=== PATIENT | female | born 1940 | race Caucasian/White ===

== ENCOUNTER 2016-11-15 16:06 | Emergency (ER) | payer OTHER, BC ==
[~2016-11-15] VITALS: Ht 162.6 cm; Wt 84.0 kg
[2016-11-15 16:10] VITALS: TEMP 36.8; Ht 162.6 cm; Wt 84.0 kg
[2016-11-15] MEDS ORDERED: GARL400T2 PO (16:28)
[2016-11-15] MEDS ORDERED: ACET-1175 PO (16:28)
[2016-11-15] MEDS ORDERED: MULT-55 PO (16:28)
[2016-11-15] MEDS ORDERED: ASCA500 PO (16:28)
[2016-11-15] MEDS ORDERED: IBUP-1050 PO (16:28)
[2016-11-15] MEDS ORDERED: MULTTAB PO (16:28)
[2016-11-15] MEDS ORDERED: ASPI325T39 PO (16:28)
[2016-11-15] MEDS ORDERED: VITA1TAB4 PO (16:28)
[2016-11-15] MEDS ORDERED: [UNRECOGNIZED DRUG - CODE] TOP (16:28)
[2016-11-15] MEDS ORDERED: CHOL2000 PO (16:28)
[2016-11-15] MEDS ORDERED: B-COTAB18 PO (16:28)
--- NOTE | 2016-11-15 16:57 | DIAGNOSTIC IMAGING REPORT ---
LEFT KNEE 3 VIEWS CLINICAL HISTORY: Left knee pain COMPARISON: None. 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 No acute fractures are visualized. There is quadriceps insertional calcification the superior patellar pole. IMPRESSION: Mild degenerative change. No acute fractures. Electronically signed by: Ibrahima Hare M.D. 11/15/2016 4:55 PM Dictated Date/Time: 11/15/2016 4:55 PM
[2016-11-15 18:06] VITALS: BP 115/72; PULSE 72; O2SAT 99
--- NOTE | 2016-11-16 01:51 | EMERGENCY ROOM VISIT NOTE ---
ED Visit Note First contact with patient: 17:36 I have personally evaluated and examined this patient. I agree with assessment and plan of Neptali Cosme PA-C. 76 yr old female with anterior left knee pain 2 weeks after sleeping awkwardly on lazy boy. Now with patellar TTP and pain with getting up. No posterior knee pain, swelling, nor calf/hamstring pain. No evidence of DVT. Imaging unremarkable. Advised PCP follow up or with Ortho.
--- NOTE | 2016-11-17 07:10 | EMERGENCY ROOM VISIT NOTE ---
ED Visit Note First contact with patient: 16:22 Chief Complaint: Left knee pain. History of Present Illness: Ms. Puentes is a 76-year-old white female who is brought into the ED via wheelchair accompanied by her complaining left anterior knee pain. Historically patient reports she has not had any significant injuries or surgeries to her knee in the past. Patient reports approximately 2 weeks ago she fell asleep on a glove see with her left leg draped over the side of the seat. She fell asleep and had her knee flexed for approximately 3 hours. When she woke up from sleep she was experiencing knee pain over the anterior portion of the knee. She reports this resolved after approximately 2 days and then return approximately one week ago. Patient is complaining of severe anterior left knee pain. She is not able to describe her discomfort. Her pain is located over the patella and the patellar tendon and the proximal portion of the tibia. She rates her discomfort 8/10. Her pain is nonradiating. Her pain worsens with ambulation. She has not identified any alleviating factors related to the pain. She reports she has been taken ibuprofen and multiple "creams" without relief of her discomfort. She denies any associated symptoms including fevers, chills, sweats, skin eruptions, skin color changes, back pain, hip pain, thigh pain, lower leg pain, ankle pain, foot pain, leg weakness/numbness/tingling. Review of Systems: As noted above in history of present illness. Past Medical History: Bronchitis, status post tubal ligation and appendectomy. Current Medications: Multivitamins, garlic, aspirin, Arnicare. Allergies to Medications: Patient denies. Social History: Patient is not employed; she lives with her and feels safe in her home environment; she denies tobacco and alcohol use. Physical Examination: Vital Signs: Date Time Temp Pulse Resp B/P (MAP) Pulse Ox O2 Delivery O2 Flow Rate FiO2 11/15/16 18:06 72 18 115/72 99 11/15/16 16:10 36.8 92 18 153/90 95 Room Air GENERAL: 76-year-old female in mild distress due to pain, nontoxic-appearing, afebrile and hemodynamically stable. NEUROLOGICAL: Awake, alert and oriented to person, place and time. Answering questions appropriately and following commands. SKIN: Warm, dry and pink. No soft tissue eruptions or trauma noted. LEFT LOWER EXTREMITY: No gross bony deformity. No shortening or malrotation. No tenderness in the hip, thigh, lower leg, ankle or foot. Mild tenderness over the anterior patella, patellar tendon and tibial tuberosity. I do not appreciate any bony deformity, swelling or erythema. There is no warmth to this area. Negative ballottement test. Negative patellar apprehension test. No laxity of the collateral or cruciate ligaments. No joint line or posterior knee tenderness. She had decreased range of motion to less than 90 but was able to reach full extension. Negative bounce test. I attempted to perform a Francisco's without success due to pain. Throughout the lower leg there was no tenderness, swelling. No dependent edema. No calf tenderness or cords. Throughout the foot the skin was warm and pink and capillary refill is brisk. She is able to distinguish light sensations through all dermatomes. ED Course: Patient is assessed as noted above. Patient's medication list was reviewed. Patient was offered pain medication and refused. Left Knee X-Rays: Were read by myself and the radiologist showing no acute fractures or dislocations. No joint effusion. Radiologist notes mild osteoarthritic changes and there is quadriceps insertional calcification of the superior patellar pole. Patient was issued a walker and instructed on achieves. Patient's case was reviewed with Dr. Carrion; he in the belly assessed the patient we agreed on diagnostic approach, treatment, disposition and plan. Patient was educated about today's findings and instructed on her treatment plan ; she verbalizes understanding and agreement with this plan. Clinical Impression: Anterior left knee pain. Disposition: Patient discharged home in stable condition accompanied by her ; prior to departure she was reassessed and subjectively reported she was feeling better and rated her discomfort 2/10. Plan: Comfort measures were discussed with the patient including rest, ice, alternating ibuprofen and acetaminophen and walker use; patient was offered opiate pain control and refused. Patient was encouraged to follow-up with family physician for recheck if no better in 4-5 days for possible referral to orthopedics. Patient was encouraged return the ED for worsening/uncontrolled pain, any new or /uncontrolled swelling, leg weakness/numbness/tingling or any new/concerning symptoms.
== END 2016-11-15 18:07 | disposition home or self-care (01) ==
LOC: C.EDB 16:07 → C.EDD 18:07
DX: M25.562 Pain in left knee (principal); Z79.82 Long term (current) use of aspirin; Z98.51 Tubal ligation status

== ENCOUNTER → 2017-03-16 | Day surgery (SDC) | payer OTHER, BC ==
[2017-02-27 10:40] VITALS: Ht 162.6 cm; Wt 81.8 kg
[~2017-03-16] VITALS: Ht 162.6 cm; Wt 81.8 kg
[~2017-03-16] MED LIST: ASCA500 PO; ATROPINE SULFATE 0.1 MG/ML 5ML SYR IV PRN; B-COTAB18 PO; CEFAZOLIN 2000MG IV PUSH 10 ML IV SCH; CHOL2000 PO; COEN100C7 PO; COLLAGEN PEPTIDES PO; DEXAMETHASONE SOD INJ 4 MG/ML VIAL ONE; EpHEDrine SULFATE INJ 50 MG/ML AMP IV PRN; EpINEphrine INJ 1MG/ML AMP 1 MG/ML AMP ONE; FENTANYL CITRATE INJ 50 MCG/1 ML 2 ML VIAL ONE; GARL400T2 PO; HYDR-5688 PO; HYDROCODONE/ACETAMOPHEN 5/325MG TAB PO PRN; HYDROmorphone INJ 1 MG/ML SYR IV PRN; IBUP-1050 PO; KETO10TA PO; KETOROLAC TROMETHAMINE 30 MG/ML VIAL ONE; LACTATED RINGER'S 1000ML 1,000 ML IV SCH; LIDOCAINE HCL 2% 2 ML VIAL (20MG/ML) ONE; MIDAZOLAM HCL 1 MG/ML 2ML VIAL ONE; MISCCAP80 PO; MULT-55 PO; MULTTAB PO; ONDANSETRON INJ 2 MG/ML 2 ML VIAL IV PRN; ONDANSETRON INJ 2 MG/ML 2 ML VIAL ONE; PROPOFOL IV EMULSION 10 MG/ML 20 ML VIAL IV ONE; ROPIVACAINE 0.5% 5 MG/ML 30 ML VIAL ONE; SODIUM CHLORIDE 0.9% 1000ML 1,000 ML IV SCH; THYR97.5 PO; VITA1TAB4 PO; [UNRECOGNIZED DRUG - CODE] PO; [UNRECOGNIZED DRUG - CODE] TOP
--- NOTE | 2017-03-16 06:30 | History & Physical Bridge - SC ---
H&P Re-Evaluation Bridge Note: I have examined the patient, reviewed the History & Physical and in the interval since the performance of the History & Physical I have noted the following changes of clinical significance: No changes noted
--- NOTE | 2017-03-16 07:42 | Discharge Instructions-SurgCtr ---
Discharge Instructions Date of Service Mar 16, 2017. Visit Reason for Visit: Tear Of Medial Meniscus Of Knee Discharge Discharge Diagnosis / Problem: SAME ABOVE Discharge Goals Goal(s): Decrease discomfort, Improve function Medications Stopped Medications Name(s): no blood thinners Restart Stopped Medication(s): MAY RESTART BLOOD THINNERS 03/16/2017 Activity Recommendations Activity Limitations: as noted below Lifting Limitations: gradually increase as tolerated Exercise/Sports Limitations: gradually increase as tolerated Shower/Bathe: tomorrow Anesthesia . Post Anesthesia Instructions: If you have had General Anesthesia or IV Sedation: * Do not drive today. * Resume driving when surgeon permits. * Do not make important decisions or sign legal documents today. * Call surgeon for: 1. Temperature elevations greater than 101 degrees F. 2. Uncontrollable pain. 3. Excessive bleeding. 4. Persistent nausea and vomiting. 5. Medication intolerance (nausea, vomiting or rash). * For nausea and vomiting use only clear liquids such as: tea, soda, bouillon until nausea subsides, then gradually increase diet as tolerated. * If you have any concerns or questions, call your surgeon's office. If physician is unavailable and it is an emergency, call 911 or go to the nearest emergency room. . Instructions / Follow-Up Instructions / Follow-Up MEDICATIONS: * Resume previous medications unless instructed otherwise by your surgeon. * Always take pain medication on a full stomach or with food to avoid upset stomach. * Do not drink alcohol or drive while taking narcotics. * Ibuprofen or Tylenol may be taken if narcotic not needed. SPECIAL CARE INSTRUCTIONS: __ None _X_ Keep extremity elevated and iced x 48 hours; apply ice 20-30 minutes 8-10 times/day. May remove at night. _X_ Crutches _X_ May discard when able __ Brace/Post-op shoe __ 24 hrs/day __ Remove at night _X_ Dressing __ Maintain until seen in office, may shower with plastic over site _X_ Remove dressings in 24-48 hours and then may shower _X_ Cover incisions with band-aids after showering __ Do not remove steri-strips Call physician if chills or temperature rises above 102 degrees or pain unrelieved by prescribed pain medications. Office [phone] Diet Recommendations Home Diet: no limitations Fluid Restriction: None Procedures Procedures Performed: Left Knee Arthroscopy, Partial Medial Meniscectomy, Chondroplasty Pending Studies Studies pending at discharge: no Medical Emergencies . Who to Call and When: Medical Emergencies: If at any time you feel your situation is an emergency, please call 911 immediately. . Non-Emergent Contact Non-Emergency issues call your: Primary Care Provider Call Non-Emergent contact if: you have a fever, temperature is above 101.5 . . "Provider Documentation" section prepared by Ty Monroy. .
--- NOTE | 2017-03-16 07:51 | OPERATIVE REPORT ---
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 PROCEDURE: Left knee diagnostic arthroscopy with chondroplasty, partial medial and lateral meniscectomy. SURGEON: Dr. Xiang Fuchs. CASE MANAGEMENT MANAGER: Kennedy Monroy PA-C, whose assistance was necessary for positioning of the leg and helping with instrumentation. ANESTHESIA: General. COMPLICATION: None. CONDITION: Stable to PACU. INDICATIONS: Palmira is a pleasant 76-year-old female who presented to my office with increased left knee pain. MRI and clinical examination were diagnostic for medial meniscal tear and mild chondromalacia. After failing conservative treatment, she elected to undergo a knee arthroscopy. OPERATION AND FINDINGS: On 03/16/2017, she arrived at [facility] for the above procedure. She was seen in the preoperative holding area and the operative extremity was identified and signed. She was given a preoperative antibiotic, taken back to the operating room, laid on table in supine position and put under general anesthesia. The left knee was then prepped and draped in sterile fashion. Timeout was done, the patient and operative extremity was properly identified. A scope was introduced in the lateral parapatellar portal. Diagnostic arthroscopy showed some mild synovitis in the suprapatellar pouch. There were some grade 4 chondral changes off the medial side of the trochlea. No chondral changes laterally. The scope was then brought into the medial compartment. There were some grade 2 and grade 3 chondral changes off the distal medial femoral condyle. There was complex tearing of the entire posterior aspect of the medial meniscus. A medial parapatellar portal was made under direct visualization. A shaver was used to complete a chondroplasty of the distal medial femoral condyle. A shaver was also used to debride back the unstable portions of medial meniscus and get the meniscus back to stable margins. A biter was used to take off the larger, unstable fragments. Multiple pictures were taken afterward which showed removal of the unstable meniscal fragments. Scope was then brought into the trochlea. ACL and PCL were probed and intact. The scope was then brought into the lateral compartment. There was a tear of the root of the lateral meniscus that was flipped under itself a little bit. A shaver was used to remove this unstable meniscal fragment. The remainder of the lateral meniscus looked okay. There was no cartilage damage laterally. The knee was then brought into full extension. A shaver was used to do mild chondroplasty of the trochlea and remove any inflamed fat pad. The scope was then placed in the medial parapatellar portal, repeat diagnostic arthroscopy showed no additional pathology. Multiple pictures were taken. The knee was then irrigated and arthroscopic instruments were removed. Portal sites were closed with 3-0 nylon. The knee was then injected with 30 mL of ropivacaine with epi and Toradol. She was then placed in a soft compressive dressing, extubated, transferred to a [facility] and taken to the postanesthesia care unit in stable condition. She tolerated the procedure well. I attest to the content of the Intraoperative Record and any orders documented therein. Any exception s are noted below.
[2017-03-16] MEDS: FENTANYL CITRATE INJ 50 MCG/1 ML 2 ML VIAL IV PRN ×2 (08:09→08:20)
--- NOTE | 2017-03-16 08:28 | [facility] Post Operative Brief Note ---
Immediate Operative Summary Operative Date Mar 16, 2017. Pre-Operative Diagnosis Left Knee Medial Meniscus Tear Post-Operative Diagnosis Same Procedure(s) Performed Left Knee Arthroscopy, Partial Medial Meniscectomy, Chondroplasty Surgeon Dr Fuchs Billing Analyst Surgeon(s) Kennedy Monroy PA-C Estimated Blood Loss 5ml Findings as above Specimens None Complication(s) None Disposition Recovery Room / PACU
[2017-03-16 08:42] VITALS: TEMP 36.7
[2017-03-16 09:38] VITALS: BP 148/80; PULSE 85; O2SAT 95
--- NOTE | 2017-03-16 09:43 | Anesthesia Progress Nt - [facility] ---
Anesthesia Post Op Note Date & Time Mar 16, 2017 at 09:43 Vital Signs Pain Intensity: 3 Vital Signs Past 12 Hours Date Time Temp Pulse Resp B/P (MAP) Pulse Ox O2 Delivery O2 Flow Rate FiO2 03/16/17 09:38 85 148/80 (102) 95 Room Air 03/16/17 08:42 36.7 84 16 162/83 (109) 96 Room Air 03/16/17 08:34 85 13 03/16/17 08:34 84 13 95 03/16/17 08:31 166/87 03/16/17 08:29 83 21 03/16/17 08:29 84 21 99 03/16/17 08:29 36.7 88 18 166/87 94 Room Air 03/16/17 08:26 158/87 03/16/17 08:25 160/87 03/16/17 08:24 85 12 100 03/16/17 08:24 83 12 03/16/17 08:21 190/103 03/16/17 08:19 84 16 03/16/17 08:19 83 16 100 03/16/17 08:16 159/87 03/16/17 08:14 78 12 100 03/16/17 08:14 78 12 03/16/17 08:11 178/88 03/16/17 08:09 75 13 03/16/17 08:09 76 13 100 03/16/17 08:06 179/96 03/16/17 08:04 79 10 100 03/16/17 08:04 78 10 03/16/17 08:01 167/87 03/16/17 07:59 80 9 100 03/16/17 07:59 79 9 03/16/17 07:56 175/90 03/16/17 07:54 80 20 97 03/16/17 07:54 80 20 03/16/17 07:51 172/90 03/16/17 07:49 81 8 03/16/17 07:49 81 8 100 03/16/17 07:46 166/91 03/16/17 07:44 86 15 100 03/16/17 07:44 86 15 03/16/17 07:41 170/95 03/16/17 07:40 178/98 03/16/17 07:39 36.5 86 12 178/98 97 Mask 6 03/16/17 06:26 36.7 84 20 164/90 (114) 95 Room Air Notes Mental Status: alert / awake / arousable, participated in evaluation Pt Amnestic to Procedure: Yes Nausea / Vomiting: adequately controlled Pain: adequately controlled Airway Patency, RR, SpO2: stable & adequate BP & HR: stable & adequate Hydration State: stable & adequate Anesthetic Complications: no major complications apparent
== END | disposition home or self-care (01) ==
LOC: X.SURG 06:05
PROVIDERS: ATTEND Orthopaedic Surgery
DX: S83.242A Other tear of medial meniscus, current injury, left knee, initial encounter (principal); S83.282A Other tear of lateral meniscus, current injury, left knee, initial encounter; M94.20 Chondromalacia, unspecified site; X58.XXXA Exposure to other specified factors, initial encounter

== ENCOUNTER → 2017-06-09 | Outpatient (CLI) | payer OTHER, BC ==
[~2017-06-09] MED LIST changes: -ATROPINE SULFATE 0.1 MG/ML 5ML SYR IV PRN; -CEFAZOLIN 2000MG IV PUSH 10 ML IV SCH; -DEXAMETHASONE SOD INJ 4 MG/ML VIAL ONE; -EpHEDrine SULFATE INJ 50 MG/ML AMP IV PRN; -EpINEphrine INJ 1MG/ML AMP 1 MG/ML AMP ONE; -FENTANYL CITRATE INJ 50 MCG/1 ML 2 ML VIAL ONE; -HYDROCODONE/ACETAMOPHEN 5/325MG TAB PO PRN; -HYDROmorphone INJ 1 MG/ML SYR IV PRN; -KETOROLAC TROMETHAMINE 30 MG/ML VIAL ONE; -LACTATED RINGER'S 1000ML 1,000 ML IV SCH; -LIDOCAINE HCL 2% 2 ML VIAL (20MG/ML) ONE; -MIDAZOLAM HCL 1 MG/ML 2ML VIAL ONE; -ONDANSETRON INJ 2 MG/ML 2 ML VIAL IV PRN; -ONDANSETRON INJ 2 MG/ML 2 ML VIAL ONE; -PROPOFOL IV EMULSION 10 MG/ML 20 ML VIAL IV ONE; -ROPIVACAINE 0.5% 5 MG/ML 30 ML VIAL ONE; -SODIUM CHLORIDE 0.9% 1000ML 1,000 ML IV SCH
--- NOTE | 2017-06-09 15:45 | DIAGNOSTIC IMAGING REPORT ---
FLUOROSCOPIC GUIDED right HIP STEROID INJECTION FLUOROSCOPY TIME: 3 seconds. A single fluoroscopic spot image HISTORY: Right hip pain. PROCEDURE: After obtaining written informed consent, the patient was placed supine on the fluoroscopy table. A suitable site for needle insertion was marked using fluoroscopic guidance. The right hip was prepped and draped in the usual sterile fashion. 1% lidocaine was used for skin, subcutaneous and deep soft tissue anesthesia. Under intermittent fluoroscopic guidance, a 22 gauge x 3.5 inch spinal needle was inserted into the right hip joint. 2 cc of Optiray 300 was injected to confirm the intra-articular location. This is followed by a mixture of 5cc of 0.5% bupivacaine and 2 cc of betamethasone at the request of the referring physician. The needle was then removed. There were no apparent complications. IMPRESSION: Fluoroscopic-guided right hip steroid injection without immediate complication. Electronically signed by: Vik Solano M.D. 06/09/2017 3:44 PM Dictated Date/Time: 06/09/2017 3:43 PM
== END | disposition home or self-care (01) ==
LOC: C.RADBC 13:00
PROVIDERS: ATTEND Orthopaedic Surgery
DX: M16.11 Unilateral primary osteoarthritis, right hip (principal)

== ENCOUNTER → 2017-12-13 | Outpatient (CLI) | payer OTHER, BC ==
[~2017-12-13] MED LIST changes: +CHOL1000 PO; +COEN150C PO; +GARL1TAB13 PO; -HYDR-5688 PO; -KETO10TA PO; +VTME100 PO; +[UNRECOGNIZED DRUG - OTHER] PO
--- NOTE | 2017-12-13 16:05 | DIAGNOSTIC IMAGING REPORT ---
TWO VIEW CHEST CLINICAL HISTORY: Preoperative examination. FINDINGS: PA and lateral chest radiographs are obtained. No prior studies are available for comparison at the time of dictation. The cardiomediastinal silhouette is unremarkable. The lungs and pleural spaces are clear. There is no pneumothorax. The skeletal structures are osteopenic. Degenerative changes noted in the shoulders. A mild compression deformity is seen in the mid to lower thoracic region. IMPRESSION: No active disease in the chest. Electronically signed by: Ren Ewing M.D. 12/13/2017 4:04 PM Dictated Date/Time: 12/13/2017 4:03 PM
[2017-12-13 16:45] LABS: BASO % 0.4 %; BASO ABS # 0.02 K/uL (0-0.2); EOS % 1.2 %; EOS ABS # 0.06 K/uL (0-0.5); HEMATOCRIT 41.8 % (37-47); HEMOGLOBIN 14.2 g/dL (12.0-16.0); IG# 0.01 K/uL (0.00-0.02); LYMPH % 32.8 %; LYMPH ABS # 1.64 K/uL (1.2-3.4); MEAN CELL VOLUME 92.1 fL (80-100); MEAN CORPUSCULAR HEMOGLOBIN 31.3 pg (25-34); MEAN PLATELET VOLUME 10.2 fL (7.4-10.4); MONO ABS # 0.45 K/uL (0.11-0.59); NEUT % 56.4 %; NEUT ABS # 2.82 K/uL (1.4-6.5); PLATELET COUNT 252 K/uL (130-400); RED CELL DISTRIBUTION WIDTH SD 43.6 fL (36.4-46.3)
[2017-12-13 16:52] LABS: PTT PATIENT 23.6 SECONDS (21.0-31.0)
[2017-12-13 17:04] LABS: BLOOD UREA NITROGEN 19 mg/dl (7-18); CALCIUM 9.3 mg/dl (8.5-10.1); CARBON DIOXIDE 29 mmol/L (21-32); CREATININE 0.72 mg/dl (0.60-1.20); GLUCOSE 115 mg/dl (70-99); POTASSIUM 4.9 mmol/L (3.5-5.1); SODIUM 138 mmol/L (136-145)
== END | disposition home or self-care (01) ==
LOC: C.CPL 14:57
PROVIDERS: ATTEND Orthopaedic Surgery
DX: Z01.810 Encounter for preprocedural cardiovascular examination (principal); Z01.811 Encounter for preprocedural respiratory examination; Z01.812 Encounter for preprocedural laboratory examination

== ENCOUNTER 2020-08-04 10:05 | Inpatient (IN) ==
--- NOTE | 2020-07-14 15:55 | PAT Medication Instructions ---
Medication Instructions Date of Service July 14, 2020 Home Medications A-C-E-zinc ox-selen AA-copper [Vision Formula] 1 tab PO DAILY ascorbic acid (vitamin C) [Vitamin C] 500 mg PO BID ibuprofen 200 - 600 mg PO Q4H PRN multivitamin 1 tab PO DAILY vitamin B complex 1 tab PO QAM thyroid (pork) [Nature-Throid] 97.5 mg PO QAM cholecalciferol (vitamin D3) [Vitamin D3] 1,000 unit PO QAM coenzyme Q10 [CoQ-10] 100 mg PO QAM vitamin E 100 unit PO BID Lactobacillus acidophilus [Probiotic] 1 cap PO TIDM acetaminophen [Tylenol Extra Strength] 1,000 mg PO DIRECTED PRN arnica 1 applic TOPICAL DIRECTED PRN collagen (bovine) 1 applic TOPICAL DAILY dextromethorphan-guaifenesin [Mucinex DM] 2 tab PO Q12H PRN garlic 500 mg PO DAILY ASK your surgeon for instructions ibuprofen 200 - 600 mg PO Q4H PRN STOP taking 2 weeks before surgery A-C-E-zinc ox-selen AA-copper [Vision Formula] 1 tab PO DAILY coenzyme Q10 [CoQ-10] 100 mg PO QAM vitamin E 100 unit PO BID garlic 500 mg PO DAILY STOP taking 24 hours before surgery arnica 1 applic TOPICAL DIRECTED PRN collagen (bovine) 1 applic TOPICAL DAILY DO NOT take the morning of surgery ascorbic acid (vitamin C) [Vitamin C] 500 mg PO BID multivitamin 1 tab PO DAILY vitamin B complex 1 tab PO QAM cholecalciferol (vitamin D3) [Vitamin D3] 1,000 unit PO QAM Lactobacillus acidophilus [Probiotic] 1 cap PO TIDM dextromethorphan-guaifenesin [Mucinex DM] 2 tab PO Q12H PRN Take morning of surgery With a small sip of water, OTHERWISE NOTHING TO EAT OR DRINK AFTER MIDNIGHT: thyroid (pork) [Nature-Throid] 97.5 mg PO QAM acetaminophen [Tylenol Extra Strength] 1,000 mg PO DIRECTED PRN (okay to take up to 4 hours prior to surgery if needed) Take evening before surgery Lactobacillus acidophilus [Probiotic] 1 cap PO TIDM acetaminophen [Tylenol Extra Strength] 1,000 mg PO DIRECTED PRN (if needed) dextromethorphan-guaifenesin [Mucinex DM] 2 tab PO Q12H PRN (if needed) Other Notes If you have any questions please call us at [phone] or [phone] or [phone] or [phone]
--- NOTE | 2020-07-16 13:00 | Anesthesiology Consultation ---
Date of Service July 16, 2020 Assessment & Plan (1) Encounter for pre-operative examination: Chart Review Chart Review: Pending: Refer to Additional Notes / Consult section (pending response from PCP re: CXR and preop Covid testing ) and Patient seen in Pre Admission Testing Note sent to PCP re: CXR and inquiring if CT scan of chest needs done prior to surgery. Also sent TSH and Hgb A1C as FYI to follow up as outpatient. - Check BSG AM DOS Per PAT appt on 07/16/20, pt resides in [facility]. No recent travel. Uses PPE. No known Covid positive contacts or Covid related symptoms. No known Covid infection in the past 90 days. Preop Covid testing 07/29/20= will await results. Educated on importance of self quarantining, social distancing and wearing mask in public both for the patient and household contacts. Teaching & Discussion Pre-Anesthesia Teaching/Discussion Notes: Instructed NPO after midnight before surgery,except medications with 15 cc of water. Medication instructions provided according to the [facility] guidelines. History Surgery Operation Date: 08/04/20 10:55 Proposed Procedures p Left Reverse Total Shoulder Arthroplasty Titanium - Xiang Fuchs, DO Height/Weight Height: 5 ft 2.5 in Weight: 82.8 kg Allergies Allergy/AdvReac Type Severity Reaction Status Date / Time nickel AdvReac Unknown SKIN Verified 07/09/20 15:13 IRRITATION Medications Home Medications Medication Instructions Recorded Confirmed Last Taken A-C-E-zinc ox-selen AA-copper 1 tab PO DAILY #0 11/15/16 07/09/20 08/16/18 [Vision Formula] ascorbic acid (vitamin C) [Vitamin 500 mg PO BID #0 11/15/16 07/09/20 08/16/18 C] ibuprofen 200 - 600 mg PO Q4H PRN #0 tab 11/15/16 07/09/20 Unknown multivitamin 1 tab PO DAILY #0 tab 11/15/16 07/09/20 08/16/18 vitamin B complex 1 tab PO QAM #0 11/15/16 07/09/20 08/16/18 cholecalciferol (vitamin D3) 1,000 unit PO QAM 90 Days #90 tab 12/13/17 07/09/20 08/16/18 [Vitamin D3] coenzyme Q10 [CoQ-10] 100 mg PO QAM #0 cap 12/13/17 07/09/20 08/16/18 vitamin E 100 unit PO BID #0 12/13/17 07/09/20 08/16/18 Lactobacillus acidophilus 1 cap PO TIDM 08/16/18 07/09/20 08/16/18 [Probiotic] acetaminophen [Tylenol Extra 1,000 mg PO DIRECTED PRN 08/16/18 07/09/20 Unknown Strength] arnica 1 applic TOPICAL DIRECTED PRN 08/16/18 07/09/20 Unknown collagen (bovine) 1 applic TOPICAL DAILY 08/16/18 07/09/20 08/16/18 dextromethorphan-guaifenesin 2 tab PO Q12H PRN 08/16/18 07/09/20 Unknown [Mucinex DM] garlic 500 mg PO DAILY 07/08/19 07/09/20 Unknown Actalin See Rx Instructions .ROUTE .COMPLEX 07/16/20 07/16/20 Unknown celecoxib [Celebrex] 200 mg PO DAILY 07/16/20 07/16/20 Unknown Past Medical History Medical History (Updated 07/17/20 @ 13:48 by Flor Waters PA-C) Arthritis Questionable PMR but no definitive diagnosis Dyslipidemia History of seizure DURING CHILDHOOD AND STOP TAKING MEDS AGE 41. NO SEIZURE ACTIVITY SINCE Hypothyroidism Was on Nature thyroid in the past - no longer taking- taking OTC thyroid supplement (Actalin). TSH at PAT appt on 07/16/20 minimally elevated at 4.910 and Free T4 WNL Numbness and tingling of both lower extremities SECONDARY TO KNEE SURGERY; ALSO POSSIBLE SECONDARY TO PREDIABETES Prediabetes Per patient- glucose controlled Hgb A1C 7.3 (no meds)- results sent to PCP for follow up as outpatient Exercise / Class Metabolic Activity II 4-5 Yardwork/Stairs/Walk up hill (one flight of stairs - no chest pain or SOB ) Past Surgical History Surgical History History of appendectomy History of bilateral tubal ligation History of cholecystectomy History of left cataract surgery History of partial knee replacement LEFT History of right cataract surgery Hx of arthroscopic knee surgery LEFT 03/2017 Past Anesthesia History No Hx of Anesthesia Complications and No Family Hx of Anesthesia Complications History of PONV No Hx of PONV and No Hx of Motion Sickness Social History Smoking Status: Former smoker tobacco type: cigarettes Smoking cigarettes per day: Smoked x 20 years- light smoker Do You Dip or Chew Tobacco: No Smoking End Date: Quit at age 41 Hx Alcohol Use: No Hx Substance Use: No substance use type: does not use Review of Systems Light snoring - no hx of sleep study Patient denies chest pain, shortness of breath, dyspnea on exertion, reflux, cough, wheezing, palpitations. No hx of stroke, AL. No hx of blood clots or blood transfusions Physical Exam Vital Signs VITALS BP 122/7 P 88 TEMP 98.3 SP02 96% RESP 16 Constitutional no acute distress ENMT Mouth: no TMJ clicking Thyromental Distance: > or= 3.5 Finger Breadths (3.5) Mallampati Class: II Temporary bridge (will not wear DOS) Capped top front teeth (multiple) Neck neck extension not limited Respiratory normal respiratory effort; no respiratory distress Auscultation: lungs clear to auscultation bilaterally; no wheezes Cardiovascular Rate/Rhythm: regular rate and regular rhythm Heart Sounds: no murmur Vessels: no carotid bruit Musculoskeletal Spine: no pain with cervical ROM Extremities: extremities normal to inspection Psychiatric Orientation: alert Testing Laboratory Results 07/16/20 13:55 07/16/20 13:55 PT 9.8 Seconds (9.0-12.0) 07/16/20 13:55 INR 1.0 (0.9-1.1) 07/16/20 13:55 APTT 27.7 Seconds (21.0-31.0) 07/16/20 13:55 Hemoglobin A1c 7.3 % (4.5-5.6) H 07/16/20 13:55 Blood Type O Positive 07/16/20 13:55 Antibody Screen NEGATIVE 07/16/20 13:55 07/16/20= TSH: 4.910 Free T4: 1.09 Electrocardiogram Date: 07/16/20 Findings: + NSR @ (81bpm) Normal EKG. Chest X-Ray Date: 07/16/20 Findings: + NAD Ill-defined 9 mm nodular density of the left lung apex may be secondary to summation density versus pulmonary nodule. As a precautionary measure a follow- up chest CT could be considered. (CXR and note sent to PCP for review)
--- NOTE | 2020-07-16 14:29 | XRay Report ---
XR chest Pre-admission PA/Lat HISTORY: 80 years-old Female pat preoperative exam. No acute chest complaints COMPARISON: Chest radiograph 07/15/2019 TECHNIQUE: PA and lateral views of the chest FINDINGS: Cardiomediastinal and hilar silhouettes are within normal limits. Unchanged smoothly marginated right paratracheal opacity suggestive of normal vasculature. Ill-defined 9 mm nodular density of the left upper lung. No pneumothorax, pleural effusion, airspace consolidation or overt pulmonary edema. Degen erative changes of the spine and left shoulder. IMPRESSION: 1. No acute process. 2. Ill-defined 9 mm nodular density of the left lung apex may be secondary to summation density versu s pulmonary nodule. As a precautionary measure a follow-up chest CT could be considered. ACT 112: Negative or not required by law. The above report was generated using voice recognition software. It may contain grammatical, syntax o r spelling errors. Electronically signed by: Carmelo Olivera M.D. 07/16/2020 2:28 PM
[2020-07-16 15:16] LABS: Basophils # (auto) 0.03 K/uL (0-0.2); Basophils % (auto) 0.5 %; Eosinophils # (auto) 0.18 K/uL (0-0.5); Eosinophils % (auto) 3.1 %; Hematocrit (blood only) 35.1 % (37-47); Hemoglobin 11.5 g/dL (12.0-16.0); Immature Granulocytes # (auto) 0.01 K/uL (0.00-0.02); Immature Granulocytes % (auto) 0.2 %; Lymphocytes # (auto) 1.06 K/uL (1.2-3.4); Lymphocytes % (auto) 18.1 %; Mean Corpuscular Hemoglobin 29.3 pg (25-34); Mean Corpuscular Hgb Conc 32.8 g/dL (32-36); Mean Corpuscular Volume 89.5 fL (80-100); Mean Platelet Volume 9.3 fL (7.4-10.4); Monocytes # (auto) 0.55 K/uL (0.11-0.59); Monocytes % (auto) 9.4 %; Neutrophils # (auto) 4.02 K/uL (1.4-6.5); Neutrophils % (auto) 68.7 %; Platelet Count 390 K/uL (130-400); RDW Coefficient of Variation 14.8 % (11.5-14.5); RDW Standard Deviation 48.9 fL (36.4-46.3); Red Blood Count 3.92 M/uL (4.2-5.4); White Blood Count 5.85 K/uL (4.8-10.8)
[2020-07-16 15:28] LABS: Partial Thromboplastin Ratio 1.1; Partial Thromboplastin Time 27.7 Seconds (21.0-31.0); Prothrombin Time 9.8 Seconds (9.0-12.0)
[2020-07-16 16:04] LABS: BUN Creatinine Ratio 26.8 (10-20); Calcium 9.4 mg/dl (8.5-10.1); Creatinine Clr Calc Pharmacy 67.6 ml/min; Est GFR (African American) 96.4; Est GFR (Non-African American) 83.2; Potassium 4.8 mmol/L (3.5-5.1)
[2020-07-16 16:14] LABS: Thyroid Stimulating Hormone 4.91 uIu/ml (0.300-4.500)
[2020-07-16 16:26] LABS: T4 Free Thyroxine 1.09 ng/dl (0.8-1.6)
[2020-07-17 06:54] LABS: Estimated Average Glucose 163 mg/dl; Hemoglobin A1C 7.3 % (4.5-5.6)
--- NOTE | 2020-07-17 12:56 | Electrocardiogram Report ---
Test Reason : Blood Pressure : / mmHG Vent. Rate : 081 BPM Atrial Rate : 081 BPM P-R Int : 156 ms QRS Dur : 078 ms QT Int : 382 ms P-R-T Axes : 062 -13 046 degrees QTc Int : 443 ms Normal sinus rhythm Normal ECG When compared with ECG of 15-JUL-2019 13:37, Premature ventricular complexes are no longer Present Confirmed by Ori Pool ([id number]) on 07/17/2020 12:55:48 PM Referred By: Xiang Fuchs Confirmed By:Ori Pool
--- NOTE | 2020-07-30 13:22 | History & Physical Report ---
Date of Service July 30, 2020 Assessment & Plan (1) Osteoarthritis of left shoulder: We will proceed with a left reverse shoulder arthroplasty. Postoperatively she will be placed in a sling and kept overnight in the hospital for postoperative medical management. She plans to use energy physical therapy upon discharge. History of Present Illness Chief Complaint: Advanced osteoarthritis of the left shoulder. Primary Care Provider: Stephanie Bruner DO Palmira is a pleasant 80-year-old female whose been dealing with chronic increasing left shoulder pain. She denies any injuries. X-rays and clinical examination have been diagnostic for advanced osteoarthritis of left shoulder. Given her poor function as well as her glenoid bone loss, we have elected to proceed with a left reverse shoulder arthroplasty.. Allergies Allergy/AdvReac Type Severity Reaction Status Date / Time nickel AdvReac Unknown SKIN Verified 07/09/20 15:13 IRRITATION Home Medications Medication Instructions Recorded Confirmed Type A-C-E-zinc ox-selen AA-copper 1 tab PO DAILY #0 11/15/16 07/09/20 History [Vision Formula] ascorbic acid (vitamin C) [Vitamin 500 mg PO BID #0 11/15/16 07/09/20 History C] ibuprofen 200 - 600 mg PO Q4H PRN #0 tab 11/15/16 07/09/20 History multivitamin 1 tab PO DAILY #0 tab 11/15/16 07/09/20 History vitamin B complex 1 tab PO QAM #0 11/15/16 07/09/20 History cholecalciferol (vitamin D3) 1,000 unit PO QAM 90 Days #90 tab 12/13/17 07/09/20 History [Vitamin D3] coenzyme Q10 [CoQ-10] 100 mg PO QAM #0 cap 12/13/17 07/09/20 History vitamin E 100 unit PO BID #0 12/13/17 07/09/20 History Lactobacillus acidophilus 1 cap PO TIDM 08/16/18 07/09/20 History [Probiotic] acetaminophen [Tylenol Extra 1,000 mg PO DIRECTED PRN 08/16/18 07/09/20 History Strength] arnica 1 applic TOPICAL DIRECTED PRN 08/16/18 07/09/20 History collagen (bovine) 1 applic TOPICAL DAILY 08/16/18 07/09/20 History dextromethorphan-guaifenesin 2 tab PO Q12H PRN 08/16/18 07/09/20 History [Mucinex DM] garlic 500 mg PO DAILY 07/08/19 07/09/20 History Actalin See Rx Instructions .ROUTE .COMPLEX 07/16/20 07/16/20 History celecoxib [Celebrex] 200 mg PO DAILY 07/16/20 07/16/20 History Past Med/Surg History Medical History Arthritis Questionable PMR but no definitive diagnosis Dyslipidemia History of seizure DURING CHILDHOOD AND STOP TAKING MEDS AGE 41. NO SEIZURE ACTIVITY SINCE Hypothyroidism Was on Nature thyroid in the past - no longer taking- taking OTC thyroid supplement (Actalin). TSH at PAT appt on 07/16/20 minimally elevated at 4.910 and Free T4 WNL Numbness and tingling of both lower extremities SECONDARY TO KNEE SURGERY; ALSO POSSIBLE SECONDARY TO PREDIABETES Prediabetes Per patient- glucose controlled Hgb A1C 7.3 (no meds)- results sent to PCP for follow up as outpatient Surgical History History of appendectomy History of bilateral tubal ligation History of cholecystectomy History of left cataract surgery History of partial knee replacement LEFT History of right cataract surgery Hx of arthroscopic knee surgery LEFT 03/2017 Social History Smoking Status: Former smoker Cigarettes Per Day: Smoked x 20 years- light smoker; Second Hand Exposure: No; Hx Alcohol Use: No Hx Substance Use: No Preferred Language: Macanese Communication Ability: Effective Contact Lens Assistant Required: No Beliefs That Will Affect Care: None Current Living Situation: Spouse Feels Safe at Home: Yes Assistive Devices: Glasses Review of Systems All systems reviewed & are unremarkable except as noted in HPI & below. Physical Exam On physical examination of her left shoulder, she has about 130 reason for elevation with her degrees of external rotation. She has 4 out of 5 motion of the full can testing 4 out of 5 motion with external rotation. She has pain of the glenohumeral joint line.. Constitutional WD/WN, vitals as above Eyes PERRL, conjunctivae normal, anicteric sclerae ENMT external ear and nose normal, oropharynx normal Neck trachea midline, no thyromegaly Respiratory normal respiratory effort Cardiovascular RRR, no murmur, no edema Gastrointestinal (Abdomen) normal bowel sounds, soft, nontender, no hepatosplenomegaly Psychiatric A+Ox3, euthymic affect Results & Data Results & Data Laboratory Results . Diagnostic Findings X-rays of the left shoulder show advanced osteoarthritis with joint space narrowing, osteophyte formation, and [id number] articulation.. PG Care Time/CCT Total # of Minutes Spent Total Time Spent with Patient: Total time spent is greater than 50% in coordination of care (as documented) at patient's floor/unit and/or counseling patient: Coding Level of Care Code None Diagnoses Osteoarthritis of left shoulder M19.012
[~2020-08-04 10:05] MED LIST changes: +ACETAMINOPHEN 500 MG TAB PO SCH; -ASCA500 PO; -B-COTAB18 PO; +BUPIVACAINE 0.5 % 5 MG/1 ML PF 10ML VIAL ONE; -CHOL1000 PO; -CHOL2000 PO; -COEN100C7 PO; -COEN150C PO; -COLLAGEN PEPTIDES PO; +FAMOTIDINE 20 MG TAB PO SCH; +GABAPENTIN 300 MG CAP PO SCH; -GARL1TAB13 PO; -GARL400T2 PO; -IBUP-1050 PO; +LR 15ML/HR IV SCH; +LR 60ML/HR IV SCH; -MISCCAP80 PO; -MULT-55 PO; -MULTTAB PO; +ROPIVACAINE 0.5% HCL/PF 150 MG, BUPIVACAINE 0.75% MPF 20 ML, EPINEPHrine 30MG/30ML (OR ... INSTIL SCH; -THYR97.5 PO; +TRANEXAMIC ACID 1,000 MG **IV Intra-op IV SCH; -VITA1TAB4 PO; -VTME100 PO; -[UNRECOGNIZED DRUG - CODE] PO; -[UNRECOGNIZED DRUG - CODE] TOP; -[UNRECOGNIZED DRUG - OTHER] PO; +ceFAZolin 2000MG 2,000 MG/15 ML SYR IV SCH; +dexAMETHasone 4 MG TAB PO SCH; +traMADol HCL 50 MG TABLET PO SCH
[2020-08-04] MEDS ORDERED: fentaNYL citrate 100 MCG/2 ML VIAL ONE (10:17)
[2020-08-04] MEDS ORDERED: MIDAZOLAM HCL 1 MG/ML 2ML VIAL ONE (10:17)
[2020-08-04] MEDS ORDERED: LIDOCAINE HCL 2% 2 ML VIAL/AMP(20MG/ML) INFIL ONE (10:17)
[2020-08-04] MEDS ORDERED: PROPOFOL IV EMULSION 10 MG/ML 20 ML VIAL IV ONE (10:17)
[2020-08-04] MEDS ORDERED: ONDANSETRON INJ 2 MG/ML 2 ML VIAL ONE (10:17)
--- NOTE | 2020-08-04 11:26 | History & Physical Bridge Note ---
Date of Service August 04, 2020 History & Physical Bridge Note I have examined the patient, reviewed the History & Physical and in the interval since the performance of the History & Physical I have noted the following changes of clinical significance: no changes noted
[2020-08-04] MEDS ORDERED: ATROPINE SULFATE 0.1 MG/ML 10ML SYR IV PRN (12:45)
[2020-08-04] MEDS ORDERED: HYDROmorphone INJ 1 MG/ML SYRINGE IV PRN (12:45)
[2020-08-04] MEDS ORDERED: PHENYLEPHRINE 100MCG/ML 5ML SYR IV PRN (12:45)
[2020-08-04] MEDS ORDERED: ePHEDrine sulfate 50 MG/ML AMP IV PRN (12:45)
[2020-08-04] MEDS ORDERED: ONDANSETRON INJ 2 MG/ML 2 ML VIAL IV PRN ×2 (12:45→16:29)
[2020-08-04] MEDS ORDERED: LABETALOL HCL IV 5 MG/ML 20ML IV PRN (12:45)
[2020-08-04] MEDS ORDERED: fentaNYL citrate 100 MCG/2 ML VIAL IV PRN (12:45)
[2020-08-04] MEDS ORDERED: ROPIVACAINE 0.5% HCL/PF 150 MG, BUPIVACAINE 0.75% MPF 20 ML, EPINEPHrine 30MG/30ML (OR ... INSTIL SCH (14:00)
[2020-08-04] MEDS ORDERED: PHENYLEPHRINE HCL 10 MG/ML VIAL ONE (14:12)
--- NOTE | 2020-08-04 14:40 | Operative Report ---
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 tendon I identified the patient and participated in the time-out.: Yes Procedure Operation Date: 08/04/20 13:05 Actual Procedures p Left Reverse Total Shoulder Arthroplasty Titanium(Left) with open biceps tenodesis as a distinct and separate procedure entheses modifier 59)- Xiang Fuchs DO Surgeon Xiang Fuchs DO Temporary Data Entry Clerk Xiang Hanson PAC Estimated Blood Loss 250 Findings Consistent with Post-Op Diagnosis Specimens Left humeral head Complications none Disposition Disposition: Recovery Room Indications Palmira is a pleasant 80-year-old female has been doing with chronic increasing left shoulder pain. X-rays and clinical examination are diagnostic for advanced osteoarthritis of the left shoulder. After failing extensive conservative treat ment she has elected proceed with a left reverse shoulder arthroplasty. Description of Procedure A CPT code modifier 59: The long head of the biceps tendon was enlarged and inflamed consistent with tendinopathy. A tenodesis was opted. This was a separate and distinct portion of the procedure. For these reasons, a CPT code modifier 59 will be added to this case. Implants used: I used a Biomet Comprehensive reverse total shoulder arthroplasty system with a size 11 press fit micro humeral stem, a +6 offset humeral tray and a +3 humeral bearing, a 25 mm small augment baseplate with a 6.5 mm central screw and superior and inferior locking screws, and a size 40 mm eccentric glenosphere. Palmira arrived at [facility] for the above procedure. She was seen in the preoperative holding area and the operative extremity was identified and signed. She was given a preoperative antibiotic, TXA, and an interscalene nerve block. She was taken back to the operating room, laid on table in supine position, and put under general anesthesia. She was then put into the beachchair position. The shoulder was then prepped and draped in sterile fashion. A timeout was done and the patient and the operative extremity was properly identified. A deltopectoral approach was used. Dissection was taken down through the fascia and the deltoid was retracted laterally and the conjoined tendon was retracted medially. The anterior shoulder was exposed. The biceps groove was opened up and the biceps tendon was examined extensively. The biceps tendon demonstrated enlargement and inflammatory changes consistent with longstanding inflammation in the context of osteoarthritis and cuff arthropathy. The long head of the biceps tendon was then tenodesed to the upper border of the pectoralis major. This was a separate and distinct portion of the procedure. The subscapularis was then directly released off the lesser tuberosity with a peel technique. The inferior capsule was released and the humeral head was dislocated. A canal finding reamer was sent down the center of the humeral canal. Sequent ial reaming up to a size 11 reamer was done. Off that reamer, a proximal humeral resection guide was placed. The proximal humerus was resected at 135 of inclination and 25 of retroversion. Osteophytes were then removed and the glenoid was exposed. Time was spent doing a complete capsular and labral release. The glenoid guide was then placed in the inferior aspect of the glenoid. A 3.2 mm Steinmann pin was then placed into the glenoid vault at 10 of inclination. The glenoid baseplate was then reamed. The final size 25 mm small augment baseplate was then impacted in the place. A 6.5 mm central screw was then placed followed by superior and inferior locking screws. A 40 mm eccentric glenosphere was then impacted into place. Surrounding soft tissues were then injected with 100 cc an orthopedic pain control cocktail. The proximal humerus was then exposed. Sequential broaching of the humerus up to a size 11 broach was done. Off that broach a +6 offset with a +3 bearing humeral tray was trialed. The shoulder was then reduced, brought through a full range of motion, and felt to be stable. The shoulder was then dislocated and the broach was removed. The final size 11 micro press-fit humeral stem was then impacted into place. A +3 humeral bearing was then snapped onto a +6 humeral tray. The humeral tray was then impacted onto the humeral stem. The shoulder was once again reduced, brought through a full range of motion, and felt to be stable. The subscapularis was then tenodesed back to the lesser tuberosity with transosseous FiberWire sutures and side to side sutures with the arm in 45 of external rotation. A dilute betadyne lavage was then done for 3 minutes. The joint was then irrigated with normal saline solution. Hemostasis was obtained. The interval was closed with 2-0 Vicryl suture. The skin was then closed with 2-0 Vicryl and lavonne. A Silverlon dressing was placed and the arm was rested in a regular arm sling. She was then extubated and transferred to a hospital bed. She taken to the postanesthesia care unit in stable condition. She tolerated the procedure well. Xiang Hanson PA-C, was present for the entire procedure. He was critical for patient positioning, prepping, draping, retraction exposure, wound closure and application of sterile dressing. I attest to the content of the Intraoperative Record and any orders documented therein. Any exceptions are noted below.
--- NOTE | 2020-08-04 15:23 | XRay Report ---
XR shoulder LT min 2V routine HISTORY: 80 years-old Female Post shoulder surgery left shoulder total joint arthroplasty COMPARISON: CT left shoulder 07/15/2019 TECHNIQUE: 2 views of the left shoulder FINDINGS: Reverse total joint arthroplasty demonstrates satisfactory alignment. Overlying skin lavonne are note d along with expected postsurgical soft tissue swelling and deep tissue air. No acute fracture or une xpected retained foreign body. Left pleural effusion with left lung base opacities. IMPRESSION: Reverse left shoulder total joint arthroplasty with expected postoperative changes. ACT 112: Negative or not required by law. The above report was generated using voice recognition software. It may contain grammatical, syntax o r spelling errors. Electronically signed by: Carmelo Olivera M.D. 08/04/2020 3:22 PM
--- NOTE | 2020-08-04 15:44 | Anesthesiology Progress Note ---
Date of Service August 04, 2020 Anesthesia Post Procedure Vital Signs Vital Signs: Temp Pulse Pulse Resp BP Pulse Ox 08/04/20 15:35 36.5 C 96 H 16 112/63 97 08/04/20 15:25 98 H 16 117/69 96 08/04/20 15:15 97 H 14 115/63 97 08/04/20 15:05 97 H 14 116/64 99 08/04/20 14:58 36.3 C L 105 H 18 144/78 H 96 08/04/20 10:47 37.3 C 110 H 18 193/96 H 95 Pain Intensity Left Shoulder: Pain Intensity: 2 Transfer of Care Handoff Completed per policy Notes Mental Status: alert / awake / arousable Patient Amnestic to Procedure: Yes Nausea / Vomiting: adequately controlled Pain: adequately controlled Airway Patency, RR, SpO2: stable & adequate BP & HR: stable & adequate Hydration State: stable & adequate Anesthetic Complications: no major complications apparent and Pt Satisfied with anesthetic care
[2020-08-04] MEDS ORDERED: HYDROmorphone INJ 0.5 MG/0.5 ML SYR IV PRN (16:29)
[2020-08-04] MEDS ORDERED: ACTALIN SCH (16:29)
[2020-08-04] MEDS ORDERED: METOCLOPRAMIDE HCL INJ 5 MG/ML 2 ML VIAL IV PRN (16:29)
[2020-08-04] MEDS ORDERED: NALOXONE HCL 0.4 MG/1 ML VIAL/CARP IV PRN (16:29)
[2020-08-04] MEDS ORDERED: bisacodyL 10 MG SUPP PR PRN (16:29)
[2020-08-04] MEDS ORDERED: MAGNESIUM HYDROXIDE SUSP 30 ML UDC PO PRN (16:29)
[2020-08-04] MEDS: ORTHO SCH (16:41)
[2020-08-04] MEDS: KETOROLAC TROMETHAMINE 15 MG/ML VIAL IV SCH (17:32)
[2020-08-04] MEDS: SODIUM CHLORIDE 0.9% 1000ML 1,000 ML IV SCH (17:32)
[2020-08-04] MEDS: DOCUSATE SODIUM 100 MG CAP PO SCH (20:52)
[2020-08-04] MEDS ORDERED: SENNA 8.6 MG TAB PO SCH (21:00)
[2020-08-04] MEDS: ceFAZolin 2000MG 2,000 MG/15 ML SYR IV SCH (21:13)
[2020-08-04] MEDS: ACETAMINOPHEN 500 MG TAB PO SCH (21:13)
[2020-08-05] MEDS: KETOROLAC TROMETHAMINE 15 MG/ML VIAL IV SCH ×3 (00:47→11:24)
[2020-08-05] MEDS: SODIUM CHLORIDE 0.9% 1000ML 1,000 ML IV SCH (04:35)
[2020-08-05] MEDS: ACETAMINOPHEN 500 MG TAB PO SCH ×2 (05:50→13:43)
[2020-08-05] MEDS: ceFAZolin 2000MG 2,000 MG/15 ML SYR IV SCH (05:50)
--- NOTE | 2020-08-05 06:48 | Orthopedic Progress Note ---
Date of Service August 05, 2020 Assessment & Plan (1) Status post reverse total replacement of left shoulder: Overall she is doing about as well as expected. We will see how she does today with physical therapy. She is awfully concerned about not being able to take care of herself at home. The family is very concerned as well and would like her to go to a rehab facility. Case management will be by today to discuss that possibility with her. As long as she participates well with therapy, she should be stable for discharge today. She will be in a sling for 3 weeks. She can follow-up with orthopedics in 2 weeks. Rachel Chavis was seen and examined at bedside this morning. Overall she is doing as well as expected. She is not having much pain in her left shoulder. She was able to get some sleep last night. She has no complaints.. Review of Systems All systems reviewed & are unremarkable except as noted in HPI & below. Physical Exam On physical examination of the left shoulder, the dressing is clean and dry. She is wearing her sling as instructed. Her radial, median, and ulnar nerves are checked intact at her wrist. She is still some numbness in her left thumb.. Results & Data Results & Data Laboratory Results . Diagnostic Findings Postoperative x-rays of the left shoulder show the prosthesis to be in anatomic alignment without any evidence of fracture, dislocation, or loosening. PG Care Time/CCT Total # of Minutes Spent Total Time Spent with Patient: Total time spent is greater than 50% in coordination of care (as documented) at patient's floor/unit and/or counseling patient: Coding Level of Care Code 43877 Post Operative Follow-Up Diagnoses Status post reverse total replacement of left shoulder Z96.612
[2020-08-05] MEDS: oxyCODONE HCL IR 5 MG TAB (IMMEDIATE RELEASE) PO PRN ×2 (07:46→11:48)
[2020-08-05] MEDS ORDERED: dexAMETHasone 4 MG TAB PO SCH (08:00)
[2020-08-05] MEDS: DOCUSATE SODIUM 100 MG CAP PO SCH (08:39)
[2020-08-05] MEDS ORDERED: VITAMIN B COMPLEX TAB PO SCH (09:00)
[2020-08-05] MEDS ORDERED: MULTIVITAMIN TAB PO SCH (09:00)
--- NOTE | 2020-08-12 13:51 | Discharge Summary ---
Date of Service August 12, 2020 Admission HPI (Per Admitting) Palmira is a pleasant 80-year-old female whose been dealing with chronic increasing left shoulder pain. She denies any injuries. X-rays and clinical examination have been diagnostic for advanced osteoarthritis of left shoulder. Given her poor function as well as her glenoid bone loss, we have elected to proceed with a left reverse shoulder arthroplasty.. Admission Exam (Per Admitting) On physical examination of her left shoulder, she has about 130 reason for elevation with her degrees of external rotation. She has 4 out of 5 motion of the full can testing 4 out of 5 motion with external rotation. She has pain of the glenohumeral joint line.. Principal Diagnosis Same as "Discharge Diagnosis" noted below under Discharge Instructions. Discharge Exam On physical examination of the left shoulder, the dressing is clean and dry. She is wearing her sling as instructed. Her radial, median, and ulnar nerves are checked intact at her wrist. She is still some numbness in her left thumb.. Discharge Data Procedures Performed Operation Date: 08/04/20 13:05 Actual Procedures p Left Reverse Total Shoulder Arthroplasty Titanium(Left) - Xiang Fuchs DO Ordered Studies 08/04/20 05:00 US - OR guided needle placemen Routine Hospital Course (1) Status post reverse total replacement of left shoulder: On August 04, 2020 Palmira arrived at [facility] and underwent a left reverse shoulder arthroplasty without complication. She had a general anesthetic and a left interscalene nerve block. Postoperatively she was placed in a sling and transferred to the general orthopedic floors. Her hospital course was uneventful. On postop day #1 her vital signs were stable and her pain was well controlled. She was able to participate well with physical therapy doing ambulation and range of motion exercises. [facility]. She will follow-up with orthopedics in 2 weeks. PG Care Time/CCT Total # of Minutes Spent Total Time Spent with Patient: Total time spent is greater than 50% in coordination of care (as documented) at patient's floor/unit and/or counseling patient: Discharge Plan Discharge Items Patient Disposition: Transfer Inpatient Rehab Fac Reason For Visit: Left Shoulder Degenerative Joint Disease Discharge Diagnosis: Left reverse shoulder replacement Activity: As commented below Non-emergency contact: Surgeon Call non-emergency contact if: your wound has increased redness and your wound has increased drainage Follow-up/Referrals: Stephanie Bruner, [Primary Care Provider] - Diet: Regular Addtl Attending Provider Instructions: Activity and Therapy Recommendations: * If you are using [facility] then therapy will be provided at your home until they feel you have accomplished all of your goals. * If you are using [facility] then Physical Therapy will be provided until they feel you are ready to start Outpatient Physical Therapy. * If you are not using home therapy then Outpatient Physical Therapy should start about 3-5 days from your day of surgery. Therapy will last about 8-12 weeks * Wear your sling for 3 weeks, unless otherwise instructed. You may remove your sling to shower and to dress, but otherwise, you should be in your sling at all times, including while sleeping * The shoulder replacement is very stable and you can use your hand while in the sling * You were shown a series of exercises in the hospital. Do these exercises daily including the exercises you were shown in physical therapy. Medications: * Narcotic You will likely be sent home from the hospital with a prescription for the narcotic pain medication that worked best throughout your stay. * Other medications may be prescribed for specific circumstances. If you have any questions, please call the office at . * Resume previous home medications unless otherwise instructed Dressing Care: Leave the Silverlon dressing in place for 7 days. After 7 days you may remove the dressing. If the incision is not draining then you may leave the lavonne open to air. If there is a little bit of drainage or if the lavonne are getting stuck on your clothing then cover the incision with a dry dressing. The lavonne will be removed at your 2 week follow-up appointment. Showering: You may shower with the Silverlon dressing in place. Do not let the shower spray hit the dressing directly. Pat the Silverlon dressing dry. If the dressing becomes wet underneath, then simply remove the dressing. Keep the incision dry until you are 7 days out from the day of surgery. After 7 days you may remove the Silverlon dressing and shower with the lavonne exposed. Let soapy water run over the lavonne and pat them dry. Do not scrub or soak the incision. Things To Watch For: * Drainage from the incision site that occurs more than one week after your surgery. * Increased redness at the incision site. * Fever above 102 degrees Fahrenheit. * Unusual chest pain or shortness of breath. * Call [facility] at with any of the above problems Follow-Up Visit: Follow-up with Dr. Fuchs's PA (Xiang Hanson) 2-3 weeks after your day of surgery. He will remove your lavonne and answer any questions. If you have any additional questions or concerns, Dr Fuchs is usually in the office at the same time and will be available An appointment was probably scheduled when you signed-up for surgery in the office. If you have any questions call More detailed instructions as well as Frequently Asked Questions were provided in a folder by our office when you signed-up for surgery. Please review these instructions when you get home. If you have any further questions or concerns, please feel free to call the office at [phone] Pending Studies at Discharge: No Stand-Alone Forms: My [facility] Skilled Items Patient informed of condition?: Yes DNR: No Discharge Level of Care: Acute rehab Communicable Disease: No Discharge Prognosis: Improving Lines: None Urinary Catheter: No Medications and DC Order Prescriptions: New hydrocodone-acetaminophen 5-325 mg tablet 1 tab PO Q6H PRN (Reason: pain) Qty: 40 RF: 0 Continued multivitamin Tablet 1 tab PO DAILY Qty: 0 RF: 0 ascorbic acid (vitamin C) [Vitamin C] 500 mg Tablet 500 mg PO BID Qty: 0 RF: 0 ibuprofen 200 mg Tablet 200 - 600 mg PO Q4H PRN (Reason: Pain) Qty: 0 RF: 0 vitamin B complex Tablet 1 tab PO QAM Qty: 0 RF: 0 Vision Formula(Y-O-R-Zn-Se-Cu) 1,000 unit-60 mg-30 unit Tablet 1 tab PO DAILY Qty: 0 RF: 0 vitamin E 100 unit Capsule 100 unit PO BID Qty: 0 RF: 0 coenzyme Q10 [CoQ-10] 100 mg Capsule 100 mg PO QAM Qty: 0 RF: 0 cholecalciferol (vitamin D3) [Vitamin D3] 1,000 unit Tablet 1,000 unit PO QAM 90 Days Qty: 90 RF: 3 arnica 20 % Tincture 1 applic TOPICAL DIRECTED PRN (Reason: Pain) RF: 0 Probiotic 10 billion cell Capsule 1 cap PO TIDM RF: 0 collagen (bovine) 100 % Powder 1 applic TOPICAL DAILY RF: 0 acetaminophen [Tylenol Extra Strength] 500 mg Tablet 1,000 mg PO DIRECTED PRN (Reason: Pain) RF: 0 Mucinex DM 30-600 mg Tablet Extended Release 12 Hr 2 tab PO Q12H PRN (Reason: Congestion) RF: 0 garlic 500 mg Capsule 500 mg PO DAILY RF: 0 celecoxib [Celebrex] 200 mg Capsule 200 mg PO DAILY RF: 0 Actalin See Rx Instructions .ROUTE .COMPLEX RF: 0 Discharge Orders: Discharge Order (Routine); Ordered 08/05/20 Ordered By: Xiang Kiran/Other Patient Handouts: High Blood Sugar (Hyperglycemia), Managing Type 2 Diabetes, Exercise to Manage Your Blood Sugar, 5 Steps for Eating Healthier, Understanding Type 2 Diabetes, A1C Admission Data Admit Date/Time: 08/04/20 15:04 Attending Provider: Xiang Fuchs Admit Provider: Xiang Fuchs Primary Care Provider: Stephanie Bruner Other Providers: [facility] Other Interventions: Discharge Summary Assessment (RN) Last Done: 08/05/20 13:46
== END 2020-08-05 17:02 | DRG 483 ==
LOC: ASU 10:05 → 3E 15:04

== ENCOUNTER 2020-11-20 06:12 | Inpatient (IN) ==
--- NOTE | 2020-10-29 10:28 | PAT Medication Instructions ---
Medication Instructions Date of Service October 29, 2020 Home Medications Vision Formula(F-Z-P-Zn-Se-Cu) 1 tab PO DAILY ascorbic acid (vitamin C) [Vitamin C] 500 mg PO BID ibuprofen 200 - 600 mg PO Q4H PRN multivitamin 1 tab PO DAILY vitamin B complex 1 tab PO QAM cholecalciferol (vitamin D3) [Vitamin D3] 1,000 unit PO QAM coenzyme Q10 [CoQ-10] 100 mg PO QAM vitamin E 100 unit PO BID Probiotic 1 cap PO TIDM acetaminophen [Tylenol Extra Strength] 1,000 mg PO DIRECTED PRN arnica 1 applic TOPICAL DIRECTED PRN collagen (bovine) 1 applic TOPICAL DAILY garlic 500 mg PO DAILY Actalin 1 tab PO QAM celecoxib [Celebrex] 200 mg PO DAILY PRN ASK your surgeon for instructions ibuprofen 200 - 600 mg PO Q4H PRN celecoxib [Celebrex] 200 mg PO DAILY PRN ASK your prescriber and surgeon Actalin 1 tab PO QAM STOP taking 2 weeks before surgery (or as soon as possible if surgery is within 2 weeks) Vision Formula(E-Z-W-Zn-Se-Cu) 1 tab PO DAILY coenzyme Q10 [CoQ-10] 100 mg PO QAM vitamin E 100 unit PO BID garlic 500 mg PO DAILY STOP taking 24 hours before surgery arnica 1 applic TOPICAL DIRECTED PRN collagen (bovine) 1 applic TOPICAL DAILY DO NOT take the morning of surgery ascorbic acid (vitamin C) [Vitamin C] 500 mg PO BID multivitamin 1 tab PO DAILY vitamin B complex 1 tab PO QAM cholecalciferol (vitamin D3) [Vitamin D3] 1,000 unit PO QAM Probiotic 1 cap PO TIDM Take morning of surgery With a small sip of water, OTHERWISE NOTHING TO EAT OR DRINK AFTER MIDNIGHT: acetaminophen [Tylenol Extra Strength] 1,000 mg PO DIRECTED PRN (okay to take up to 4 hours prior to surgery if needed) Take evening before surgery ascorbic acid (vitamin C) [Vitamin C] 500 mg PO BID acetaminophen [Tylenol Extra Strength] 1,000 mg PO DIRECTED PRN (if needed) Other Notes If you have any questions please call us at [phone] or [phone] or [phone] or [phone]
--- NOTE | 2020-11-02 12:14 | Anesthesiology Consultation ---
Date of Service November 02, 2020 Assessment & Plan (1) Encounter for pre-operative examination: - COVID screening: Per assessment on 11/02: Travel screen negative, no known COVID-19 positive contacts or current COVID-19 related symptoms. Patient was COVID positive 08/05/20 ([facility]), quarantined x 14 days, asymptomatic. Preop COVID testing will be > 90 days since COVID positive testing. Surgeon arranging preop COVID testing. Awaiting results. - S/P Left Reverse TSA (08/04/20): LMA#4 iGel, atraumatic insertion x1 + PNB at [facility] - Check BSG AM DOS Chart Review Chart Review: Acceptable Risk for Surgery and Patient seen in Pre Admission Testing Teaching & Discussion Pre-Anesthesia Teaching/Discussion Notes: Instructed NPO after midnight before surgery,except medications with 15 cc of water. Medication instructions provided according to the PAT guidelines. History Surgery Operation Date: 11/20/20 09:30 Proposed Procedures p Right Total Shoulder Arthroplasty Reverse - Xiang Fuchs, Height/Weight Height: 5 ft 4 in Weight: 82.1 kg Allergies Allergy/AdvReac Type Severity Reaction Status Date / Time nickel AdvReac Unknown Skin Verified 11/02/20 12:06 irritation Medications Home Medications Medication Instructions Recorded Confirmed Last Taken Vision Formula(T-G-T-Zn-Se-Cu) 1 tab PO DAILY #0 11/15/16 10/22/20 08/16/18 ascorbic acid (vitamin C) [Vitamin 500 mg PO BID #0 11/15/16 10/22/20 07/28/20 C] ibuprofen 200 - 600 mg PO Q4H PRN #0 tab 11/15/16 10/22/20 Unknown multivitamin 1 tab PO DAILY #0 tab 11/15/16 10/22/20 07/28/20 vitamin B complex 1 tab PO QAM #0 11/15/16 10/22/20 07/28/20 cholecalciferol (vitamin D3) 1,000 unit PO QAM 90 Days #90 tab 12/13/17 10/22/20 08/01/20 [Vitamin D3] coenzyme Q10 [CoQ-10] 100 mg PO QAM #0 cap 12/13/17 10/22/20 08/02/20 vitamin E 100 unit PO BID #0 12/13/17 10/22/20 07/28/20 Probiotic 1 cap PO TIDM 08/16/18 10/22/20 08/03/20 13:00 acetaminophen [Tylenol Extra 1,000 mg PO DIRECTED PRN 08/16/18 10/22/20 08/02/20 Strength] arnica 1 applic TOPICAL DIRECTED PRN 08/16/18 10/22/20 Unknown collagen (bovine) 1 applic TOPICAL DAILY 08/16/18 10/22/20 08/02/20 garlic 500 mg PO DAILY 07/08/19 10/22/20 07/31/20 Actalin 1 tab PO QAM 07/16/20 10/22/20 Unknown celecoxib [Celebrex] 200 mg PO DAILY PRN 07/16/20 10/22/20 07/28/20 Past Medical History Medical History Anemia No hx of blood transfusions Arthritis Questionable PMR but no definitive diagnosis Diabetes Diet Dyslipidemia History of COVID-19 Dx 08/05/20 ([facility]), quarantined x 14 days, asymptomatic History of seizure Childhood, stopped anticonvulsants at age 41 (no seizures since childhood) Hypothyroidism Was on Nature thyroid in the past - no longer taking- taking OTC thyroid supplement (Actalin). TSH at [facility] appt on 07/16/20 minimally elevated at 4.910 and Free T4 WNL Numbness and tingling of both lower extremities s/p knee surgery (also possible diabetic neuropathy component) Exercise / Class Metabolic Activity II 4-5 Yardwork/Stairs/Walk up hill (one FS (no CP, no SOB)) Past Surgical History Surgical History History of appendectomy History of bilateral tubal ligation History of cholecystectomy History of left cataract surgery History of partial knee replacement Left History of right cataract surgery Hx of arthroscopic knee surgery Left (2017) Status post reverse total replacement of left shoulder Left Reverse TSA (08/04/20): LMA#4 iGel, atraumatic insertion x1 + PNB at [facility] Past Anesthesia History No Hx of Anesthesia Complications and No Family Hx of Anesthesia Complications History of PONV No Hx of PONV and No Hx of Motion Sickness Social History Smoking Status: Never smoker tobacco type: cigarettes Do You Dip or Chew Tobacco: No Smoking End Date: Quit 20+ years- light smoker Hx Alcohol Use: No Hx Substance Use: No substance use type: does not use Review of Systems Patient denies chest pain, shortness of breath, dyspnea on exertion, fever, chills, cough, wheezing, palpitations. Physical Exam Vital Signs VITALS BP 126/79 P 89 TEMP 98.6 SP02 95%RA RESP 16 PHYSICAL Full cervical extension range of motion. Full TMJ range of motion. TMD 3.5 finger breaths Mallampati Score 3 Dentition: lower sides/front bridge Lungs: clear throughout to auscultation Cardiac: regular rate and rhythm, no murmurs noted Spine: normal Carotid arteries: negative bruit Extremities: no edema Lab Results Anesthesia Preop Results Results Anesthesia Widget: WBC 5.32 K/uL (4.8-10.8) 11/02/20 Hgb 12.9 g/dL (12.0-16.0) 11/02/20 Hct 40.0 % (37-47) 11/02/20 Plt 366 K/uL (130-400) 11/02/20 Na 139 mmol/L (136-145) 11/02/20 K 4.6 mmol/L (3.5-5.1) 11/02/20 Cl 105 mmol/L (98-107) 11/02/20 CO2 30 mmol/L (21-32) 11/02/20 BUN 20 mg/dl (7-18) H 11/02/20 Creat 0.70 mg/dl (0.6-1.2) 11/02/20 Glucose Level 124 mg/dl (70-99) H 11/02/20 PT 9.8 Seconds (9.0-12.0) 11/02/20 PTT 25.4 Seconds (21.0-31.0) 11/02/20 INR 1.0 (0.9-1.1) 11/02/20 HA1c 6.6 % (4.5-5.6) H 11/02/20 Blood Type O Positive 11/02/20 Antibody Screen NEGATIVE 11/02/20 Testing Electrocardiogram Date: 07/16/20 Findings: + NSR @ (81) Chest X-Ray Date: 07/16/20 No acute process. Ill-defined 9 mm nodular density of the left lung apex may be secondary to summation density versus pulmonary nodule. As a precautionary measure a follow-up chest CT could be considered. Subsequent Chest CT done 07/29/20* Other Testing Chest CT (07/31/20): Probable biapical pleuroparenchymal fibrosis/scarring. Follow-up CT chest advised in 3 months to ensure stability. No definite pulmonary nodule identified at this time. Follow-up CT in 3 months would be helpful to document stability. Mild superior endplate compression deformity of a mid and lower thoracic vertebral bodies of indeterminate age. Probable multiple hepatic cysts. Correlation with nonemergent outpatient ultrasound would be helpful for further evaluation. Cholelithiasis.
--- NOTE | 2020-11-19 15:24 | History & Physical Report ---
Date of Service November 19, 2020 Assessment & Plan (1) Primary osteoarthritis, right shoulder: We will proceed with a right reverse shoulder replacement. Postoperatively she will be placed in a sling and kept overnight in the hospital for postoperative medical management. She plans [facility] to [facility] discharge. History of Present Illness Chief Complaint: Osteoarthritis of the right shoulder. Primary Care Provider: Stephanie Bruner DO Palmira is a pleasant 80-year-old female is been with chronic worsening right shoulder pain. X-rays and clinical examination have been diagnostic for advanced osteoarthritis of the right shoulder. I did a left reverse shoulder arthroplasty on her about 3 months ago and she is done well with that. After failing conservative treatment, she has elected proceed with a right reverse shoulder replacement. Allergies Allergy/AdvReac Type Severity Reaction Status Date / Time nickel AdvReac Unknown Skin Verified 11/02/20 12:06 irritation Home Medications Medication Instructions Recorded Confirmed Type ascorbic acid (vitamin C) 500 mg 500 mg PO BID #0 11/15/16 11/18/20 History tablet (Vitamin C) ibuprofen 200 mg tablet 200 - 600 mg PO Q4H PRN #0 tab 11/15/16 11/18/20 History multivitamin 1 tab PO DAILY #0 tab 11/15/16 11/18/20 History vit A 1,000 unit-C 60 mg-E 30 1 tab PO DAILY #0 11/15/16 11/18/20 History unit-zinc oxid-selenium AA-copper tablet (Vision Formula(K-G-J-Zn-Se-Cu)) vitamin B complex 1 tab PO QAM #0 11/15/16 11/18/20 History cholecalciferol (vitamin D3) 25 1,000 unit PO QAM 90 Days #90 tab 12/13/17 11/18/20 History mcg (1,000 unit) tablet (Vitamin D3) coenzyme Q10 100 mg capsule 100 mg PO QAM #0 cap 12/13/17 11/18/20 History (CoQ-10) vitamin E 100 unit capsule 100 unit PO BID #0 12/13/17 11/18/20 History Lactobacillus acidophilus 10 1 cap PO TIDM 08/16/18 11/18/20 History billion cell capsule (Probiotic) acetaminophen 500 mg tablet 1,000 mg PO DIRECTED PRN 08/16/18 11/18/20 History (Tylenol Extra Strength) arnica 20 % topical tincture 1 applic TOPICAL DIRECTED PRN 08/16/18 11/18/20 History collagen (bovine) 100 % topical 1 applic TOPICAL DAILY 08/16/18 11/18/20 History powder garlic 500 mg capsule 500 mg PO DAILY 07/08/19 11/18/20 History Actalin 1 tab PO QAM 07/16/20 11/18/20 History celecoxib 200 mg capsule (Celebrex) 200 mg PO DAILY PRN 07/16/20 11/18/20 History Past Med/Surg History Medical History Anemia No hx of blood transfusions Arthritis Questionable PMR but no definitive diagnosis Diabetes Diet Dyslipidemia History of COVID-19 Dx 08/05/20 ([facility]), quarantined x 14 days, asymptomatic History of seizure Childhood, stopped anticonvulsants at age 41 (no seizures since childhood) Hypothyroidism Was on Nature thyroid in the past - no longer taking- taking OTC thyroid supplement (Actalin). TSH at [facility] appt on 07/16/20 minimally elevated at 4.910 and Free T4 WNL Numbness and tingling of both lower extremities s/p knee surgery (also possible diabetic neuropathy component) Surgical History History of appendectomy History of bilateral tubal ligation History of cholecystectomy History of left cataract surgery History of partial knee replacement Left History of right cataract surgery Hx of arthroscopic knee surgery Left (2017) Status post reverse total replacement of left shoulder Left Reverse TSA (08/04/20): LMA#4 iGel, atraumatic insertion x1 + PNB at [facility] Social History Smoking Status: Never smoker Second Hand Exposure: No; Hx Alcohol Use: No Hx Substance Use: No Preferred Language: Wallisian Communication Ability: Effective Reference And Instruction Librarian Required: No Beliefs That Will Affect Care: None marital status: Current Living Situation: Spouse Feels Safe at Home: Yes Assistive Devices: Cane and Glasses Review of Systems All systems reviewed & are unremarkable except as noted in HPI & below. Physical Exam On physical examination the right shoulder, she has about 120 degrees forward elevation and 120 degrees of abduction. She has crepitus throughout. She has pain over the glenohumeral joint line.. Constitutional WD/WN, vitals as above Eyes PERRL, conjunctivae normal, anicteric sclerae ENMT external ear and nose normal, oropharynx normal Neck trachea midline, no thyromegaly Respiratory normal respiratory effort Cardiovascular RRR, no murmur, no edema Gastrointestinal (Abdomen) normal bowel sounds, soft, nontender, no hepatosplenomegaly Psychiatric A+Ox3, euthymic affect Results & Data Results & Data Laboratory Results . Diagnostic Findings X-rays of the right shoulder show advanced osteoarthritis with joint space n arrowing, osteophyte formation, and [id number] articulation. PG Care Time/CCT Total # of Minutes Spent Total Time Spent with Patient: Total time spent is greater than 50% in coordination of care (as documented) at patient's floor/unit and/or counseling patient: Coding Level of Care Code None Diagnoses Primary osteoarthritis, right shoulder M19.011
[~2020-11-20 06:12] MED LIST changes: -BUPIVACAINE 0.5 % 5 MG/1 ML PF 10ML VIAL ONE; +TRANEXAMIC ACID 1,000 MG **IV Pre-op IV SCH; -traMADol HCL 50 MG TABLET PO SCH
[2020-11-20] MEDS ORDERED: BUPIVACAINE 0.5 % 5 MG/1 ML PF 10ML VIAL ONE (06:26)
--- NOTE | 2020-11-20 08:06 | History & Physical Bridge Note ---
Date of Service November 20, 2020 History & Physical Bridge Note I have examined the patient, reviewed the History & Physical and in the interval since the performance of the History & Physical I have noted the following changes of clinical significance: no changes noted
[2020-11-20] MEDS ORDERED: ORTHO JOINT ANESTHETIC ONE (08:33)
[2020-11-20] MEDS ORDERED: fentaNYL citrate 100 MCG/2 ML VIAL ONE (08:41)
[2020-11-20] MEDS ORDERED: MIDAZOLAM HCL 1 MG/ML 2ML VIAL ONE ×2 (08:41)
[2020-11-20] MEDS ORDERED: ePHEDrine sulfate 50 MG/ML AMP IV PRN (08:52)
[2020-11-20] MEDS ORDERED: ONDANSETRON INJ 2 MG/ML 2 ML VIAL IV PRN ×2 (08:52→13:12)
[2020-11-20] MEDS ORDERED: HYDROmorphone INJ 1 MG/ML SYRINGE IV PRN (08:52)
[2020-11-20] MEDS ORDERED: PROMETHAZINE HCL 6.25 MG in SODIUM CHLORIDE 0.9% 50 ML IV PRN (08:52)
[2020-11-20] MEDS ORDERED: ATROPINE SULFATE 0.1 MG/ML 10ML SYR IV PRN (08:52)
[2020-11-20] MEDS ORDERED: ONDANSETRON INJ 2 MG/ML 2 ML VIAL ONE (10:19)
[2020-11-20] MEDS ORDERED: PROPOFOL IV EMULSION 10 MG/ML 20 ML VIAL IV ONE (10:19)
[2020-11-20] MEDS ORDERED: LIDOCAINE 2% 2 ML VIAL/AMP(20MG/ML) INFIL ONE (10:20)
[2020-11-20] MEDS ORDERED: PHENYLEPHRINE 100MCG/ML 5ML SYR ONE (10:20)
--- NOTE | 2020-11-20 10:39 | Operative Report ---
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 of the long head of the biceps tendon I identified the patient and participated in the time-out.: Yes Procedure Operation Date: 11/20/20 08:40 Actual Procedures p Right Total Shoulder Arthroplasty Reverse(Right) with open biceps tenodesis as a distinct and separate procedure (modifier 59)- Xiang Fuchs DO Surgeon Xiang Fuchs, Spar Machine Operator Helper Xiang Hanson PAC Estimated Blood Loss 200 Findings Consistent with Post-Op Diagnosis Specimens Right humeral head Complications none Disposition Disposition: Recovery Room Indications Palmira is a pleasant 80-year-old female whose been dealing with bilateral shoulder pain. 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 I did a left reverse shoulder arthroplasty on her 3 months ago when she did well with that. When she regained full range of motion with the left shoulder, she elected proceed with a right reverse shoulder arthroplasty. Description of Procedure A CPT code modifier 59: The long head of the biceps tendon was enlarged and inflamed consistent with tendinopathy. A tenodesis was opted. This was a separate and distinct portion of the procedure. For these reasons, a CPT code modifier 59 will be added to this case. Implants used: I used a [employer] Comprehensive reverse total shoulder arthroplasty system with a size 10 press fit micro humeral stem, a +6 offset humeral tray and a +3 humeral bearing, a 25 mm small augment baseplate with a 6.5 mm central screw and superior and inferior locking screws, and a size 40 mm eccentric glenosphere. Palmira arrived at [facility] for the above procedure. She was seen in the preoperative holding area and the operative extremity was identified and signed. She was given a preoperative antibiotic, TXA, and an interscalene nerve block. She was taken back to the operating room, laid on table in supine position, and put under general anesthesia. She was then put into the beachchair position. The shoulder was then prepped and draped in sterile fashion. A timeout was done and the patient and the operative extremity was properly identified. A deltopectoral approach was used. Dissection was taken down through the fascia and the deltoid was retracted laterally and the conjoined tendon was retracted medially. The anterior shoulder was exposed. The biceps groove was opened up and the biceps tendon was examined extensively. The biceps tendon demonstrated enlargement and inflammatory changes consistent with longstanding inflammation in the context of osteoarthritis and cuff arthropathy. The long head of the biceps tendon was then tenodesed to the upper border of the pectoralis major. This was a separate and distinct portion of the procedure. The subscapularis was then directly released off the lesser tuberosity with a peel technique. The inferior capsule was released and the humeral head was dislocated. A canal finding reamer was sent down the center of the humeral canal. Sequential reaming up to a size 10 reamer was done. Off that reamer, a proximal humeral resection guide was placed. The proximal humerus was resected at 135 of inclination and 25 of retroversion. Osteophytes were then removed and the glenoid was exposed. Time was spent doing a complete capsular and labral release. The glenoid guide was then placed in the inferior aspect of the glenoid. A 3.2 mm Steinmann pin was then placed into the glenoid vault at 10 of inclination. The glenoid baseplate was then reamed. The final size 25 mm small augment baseplate was then impacted in the place. A 6.5 mm central screw was then placed followed by superior and inferior locking screws. A 40 mm eccentric glenosphere was then impacted into place. Surrounding soft tissues were then injected with 100 cc an orthopedic pain control cocktail. The proximal humerus was then exposed. Sequential broaching of the humerus up to a size 10 broach was done. Off that broach a +6 offset with +3 thickness humeral tray was trialed. The shoulder was then reduced, brought through a full range of motion, and felt to be stable. The shoulder was then dislocated and the broach was removed. The final size 10 micro press-fit humeral stem was then impacted into place. A +3 humeral bearing was then snapped onto a +6 humeral tray. The humeral tray was then impacted onto the humeral stem. The shoulder was once again reduced, brought through a full range of motion, and felt to be stable. The subscapularis was then tenodesed back to the lesser tuberosity with transoss eous FiberWire sutures and side to side sutures with the arm in 45 of external rotation. A dilute betadyne lavage was then done for 3 minutes. The joint was then irrigated with normal saline solution. Hemostasis was obtained. The interval was closed with 2-0 Vicryl suture. The skin was then closed with 2-0 Vicryl and lavonne. A Silverlon dressing was placed and the arm was rested in a regular arm sling. She was then extubated and transferred to a hospital bed. She taken to the postanesthesia care unit in stable condition. She tolerated the procedure well. Xiang Hanson PA-C, was present for the entire procedure. He was critical for patient positioning, prepping, draping, retraction exposure, wound closure and application of sterile dressing. I attest to the content of the Intraoperative Record and any orders documented therein. Any exceptions are noted below.
--- NOTE | 2020-11-20 11:32 | XRay Report ---
XR shoulder RT min 2V routine CLINICAL HISTORY: Post shoulder surgery COMPARISON: None. DISCUSSION: There are postsurgical changes of a reverse total right shoulder arthroplasty. There is n o dislocation. There are overlying skin lavonne. There is soft tissue gas consistent with recent surg britney. IMPRESSION: Postsurgical changes of a reverse total right shoulder arthroplasty. ACT 112: Negative or not required by law. Electronically signed by: Ibrahima Hare M.D. 11/20/2020 11:31 AM
[2020-11-20] MEDS ORDERED: oxyCODONE HCL IR 5 MG TAB (IMMEDIATE RELEASE) PO PRN (13:12)
[2020-11-20] MEDS ORDERED: HYDROmorphone INJ 0.5 MG/0.5 ML SYR IV PRN (13:12)
[2020-11-20] MEDS ORDERED: bisacodyL 10 MG SUPP PR PRN (13:12)
[2020-11-20] MEDS ORDERED: MAGNESIUM HYDROXIDE SUSP 30 ML UDC PO PRN (13:12)
[2020-11-20] MEDS ORDERED: NALOXONE HCL 0.4 MG/1 ML VIAL/CARP IV PRN (13:12)
[2020-11-20] MEDS ORDERED: METOCLOPRAMIDE HCL INJ 5 MG/ML 2 ML VIAL IV PRN (13:12)
--- NOTE | 2020-11-20 13:19 | Anesthesiology Progress Note ---
Date of Service November 20, 2020 Anesthesia Post Procedure Vital Signs Vital Signs: Temp Pulse Pulse Resp BP Pulse Ox 11/20/20 12:45 83 14 123/70 96 11/20/20 12:30 81 11 L 121/66 97 11/20/20 12:15 36.5 C 82 12 127/72 95 11/20/20 12:00 85 20 125/71 95 11/20/20 11:45 82 22 123/75 96 11/20/20 11:30 36.2 C L 86 14 150/78 H 93 11/20/20 11:25 86 20 142/82 H 94 11/20/20 11:15 86 18 147/77 H 97 11/20/20 11:05 99 H 14 169/65 H 97 11/20/20 10:57 36.4 C L 96 H 14 160/65 H 96 11/20/20 08:00 77 20 154/84 H 98 Pain Intensity Right Shoulder: Pain Intensity: 9 Transfer of Care Handoff Completed per policy Notes Mental Status: alert / awake / arousable Patient Amnestic to Procedure: Yes Nausea / Vomiting: adequately controlled Pain: adequately controlled Airway Patency, RR, SpO2: stable & adequate BP & HR: stable & adequate Hydration State: stable & adequate Anesthetic Complications: no major complications apparent
[2020-11-20] MEDS: SODIUM CHLORIDE 0.9% 1000ML 1,000 ML IV SCH ×2 (13:54→22:49)
[2020-11-20] MEDS: KETOROLAC TROMETHAMINE 15 MG/ML VIAL IV SCH ×3 (14:50→23:03)
[2020-11-20] MEDS: ACETAMINOPHEN 500 MG TAB PO SCH ×2 (14:51→21:07)
[2020-11-20] MEDS: ceFAZolin 2000MG 2,000 MG/15 ML SYR IV SCH (17:03)
[2020-11-20] MEDS: DOCUSATE SODIUM 100 MG CAP PO SCH (20:09)
[2020-11-20] MEDS: SENNA 8.6 MG TAB PO SCH (20:09)
[2020-11-21] MEDS: ceFAZolin 2000MG 2,000 MG/15 ML SYR IV SCH (01:11)
[2020-11-21] MEDS: ACETAMINOPHEN 500 MG TAB PO SCH ×3 (05:09→21:24)
[2020-11-21] MEDS: KETOROLAC TROMETHAMINE 15 MG/ML VIAL IV SCH ×4 (05:09→23:01)
[2020-11-21] MEDS ORDERED: dexAMETHasone 4 MG TAB PO SCH (08:00)
--- NOTE | 2020-11-21 08:09 | Orthopedic Progress Note ---
Date of Service November 21, 2020 Assessment & Plan (1) Status post reverse total replacement of right shoulder: Overall she is doing fairly well. She is not having much pain in the right shoulder. She will be seen by physical therapy today for ambulation and range of motion exercises. She can be discharged to [facility] later today. She will follow-up with orthopedics in 2 weeks. Rachel Chavis was seen and examined at bedside this morning. Overall she is doing very well. She is not having much pain in the right shoulder. She had difficult time sleeping last night. She has no complaints.. Review of Systems All systems reviewed & are unremarkable except as noted in HPI & below. Physical Exam Lower, the dressing is clean and dry. She is wearing her sling as instructed. The nerve block is still in effect and she cannot move her hand or her wrist yet.. Results & Data Results & Data Laboratory Results . Diagnostic Findings Postoperative x-rays of the right shoulder show the prosthesis to be in anatomic alignment without any evidence of fracture, dislocation, or loosening. PG Care Time/CCT Total # of Minutes Spent Total Time Spent with Patient: Total time spent is greater than 50% in coordination of care (as documented) at patient's floor/unit and/or counseling patient: Coding Level of Care Code 74677 Post Operative Follow-Up Diagnoses Status post reverse total replacement of right shoulder Z96.611
[2020-11-21] MEDS: MULTIVITAMIN TAB PO SCH (08:11)
[2020-11-21] MEDS: DOCUSATE SODIUM 100 MG CAP PO SCH ×2 (08:11→20:26)
[2020-11-21] MEDS ORDERED: ACTALIN PO SCH (09:00)
[2020-11-21] MEDS: SENNA 8.6 MG TAB PO SCH (20:26)
[2020-11-22] MEDS: ACETAMINOPHEN 500 MG TAB PO SCH (05:16)
[2020-11-22] MEDS: KETOROLAC TROMETHAMINE 15 MG/ML VIAL IV SCH (05:16)
--- NOTE | 2020-11-22 06:51 | Orthopedic Progress Note ---
Date of Service November 22, 2020 Assessment & Plan (1) Status post reverse total replacement of right shoulder: Overall she is doing fairly well. She is not having much pain in the right shoulder. She will be seen by physical therapy today for ambulation and range of motion exercises. She can be discharged to a rehab facility when a bed becomes available. She will follow-up with orthopedics in 2 weeks. Rachel Chavis was seen and examined at bedside this morning. Overall she is doing fairly well. She not having much pain in the right shoulder. She is awaiting placement to rehab.. Review of Systems All systems reviewed & are unremarkable except as noted in HPI & below. Physical Exam The dressing is clean and dry. Her radial, median, and ulnar nerves are checked intact at her wrist. She is wearing her sling as instructed.. Results & Data Results & Data Laboratory Results . Diagnostic Findings . PG Care Time/CCT Total # of Minutes Spent Total Time Spent with Patient: Total time spent is greater than 50% in coordination of care (as documented) at patient's floor/unit and/or counseling patient: Coding Level of Care Code 43026 Post Operative Follow-Up Diagnoses Status post reverse total replacement of right shoulder Z96.611
[2020-11-22] MEDS: DOCUSATE SODIUM 100 MG CAP PO SCH (08:02)
[2020-11-22] MEDS: MULTIVITAMIN TAB PO SCH (08:02)
--- NOTE | 2020-11-23 09:10 | Discharge Summary ---
Date of Service November 23, 2020 Admission HPI (Per Admitting) Palmira is a pleasant 80-year-old female is been with chronic worsening right shoulder pain. X-rays and clinical examination have been diagnostic for advanced osteoarthritis of the right shoulder. I did a left reverse shoulder arthroplasty on her about 3 months ago and she is done well with that. After failing conservative treatment, she has elected proceed with a right reverse shoulder replacement. Admission Exam (Per Admitting) On physical examination the right shoulder, she has about 120 degrees forward elevation and 120 degrees of abduction. She has crepitus throughout. She has pain over the glenohumeral joint line.. Principal Diagnosis Same as "Discharge Diagnosis" noted below under Discharge Instructions. Discharge Exam The dressing is clean and dry. Her radial, median, and ulnar nerves are checked intact at her wrist. She is wearing her sling as instructed.. Discharge Data Procedures Performed Operation Date: 11/20/20 08:40 Actual Procedures p Right Total Shoulder Arthroplasty Reverse, Uncemented(Right) - Xiang Fuchs DO Ordered Studies 11/20/20 05:00 US - OR guided needle placemen Routine Hospital Course (1) Status post reverse total replacement of right shoulder: On November 20 2020 Palmira arrived at [facility] and underwent a right reverse shoulder replacement without complication. She had a general anesthetic and a right interscalene nerve block. Postoperatively she was placed in a sling and transferred to the general orthopedic floors. Her hospital course was uneventful. On postop day #1 her vital signs were stable and her pain was well controlled. She was able to participate well with physical therapy doing ambulation and range of motion exercises. She talked to case management and they decided on a discharge to a rehab facility. On postop day #2 she continued to do well. Her pain was controlled and she was seen again by therapy. She was then discharged to [facility]. She will follow-up with orthopedics in 2 weeks. PG Care Time/CCT Total # of Minutes Spent Total Time Spent with Patient: Total time spent is greater than 50% in coordination of care (as documented) at patient's floor/unit and/or counseling patient: Discharge Plan Discharge Items Patient Disposition: Transfer Inpatient Rehab Fac Reason For Visit: DJD RIGHT SHOULDER Discharge Diagnosis: Right reverse shoulder replacement Activity: As commented below Non-emergency contact: Surgeon Call non-emergency contact if: your wound has increased redness and your wound has increased drainage Follow-up/Referrals: Stephanie Bruner, [Primary Care Provider] - Diet: Regular Addtl Attending Provider Instructions: Activity and Therapy Recommendations: * If you are using [facility] then therapy will be provided at your home until they feel you have accomplished all of your goals. * If you are using [facility] then Physical Therapy will be provided until they feel you are ready to start Outpatient Physical Therapy. * If you are not using home therapy then Outpatient Physical Therapy should start about 3-5 days from your day of surgery. Therapy will last about 8-12 weeks * Wear your sling for 3 weeks, unless otherwise instructed. You may remove your sling to shower and to dress, but otherwise, you should be in your sling at all times, including while sleeping * The shoulder replacement is very stable and you can use your hand while in the sling * You were shown a series of exercises in the hospital. Do these exercises daily including the exercises you were shown in physical therapy. Medications: * Narcotic You will likely be sent home from the hospital with a prescription for the narcotic pain medication that worked best throughout your stay. * Other medications may be prescribed for specific circumstances. If you have any questions, please call the office at . * Resume previous home medications unless otherwise instructed Dressing Care: Leave the Silverlon dressing in place for 7 days. After 7 days you may remove the dressing. If the incision is not draining then you may leave the lavonne open to air. If there is a little bit of drainage or if the lavonne are getting stuck on your clothing then cover the incision with a dry dressing. The lavonne will be removed at your 2 week follow-up appointment. Showering: You may shower with the Silverlon dressing in place. Do not let the shower spray hit the dressing directly. Pat the Silverlon dressing dry. If the dressing becomes wet underneath, then simply remove the dressing. Keep the incision dry until you are 7 days out from the day of surgery. After 7 days you may remove the Silverlon dressing and shower with the lavonne exposed. Let soapy water run over the lavonne and pat them dry. Do not scrub or soak the incision. Things To Watch For: * Drainage from the incision site that occurs more than one week after your surgery. * Increased redness at the incision site. * Fever above 102 degrees Fahrenheit. * Unusual chest pain or shortness of breath. * Call [facility] at with any of the above problems Follow-Up Visit: Follow-up with Dr. Fuchs's PA (Xiang Hanson) 2-3 weeks after your day of surgery. He will remove your lavonne and answer any questions. If you have any additional questions or concerns, Dr Fuchs is usually in the office at the same time and will be available An appointment was probably scheduled when you signed-up for surgery in the office. If you have any questions call More detailed instructions as well as Frequently Asked Questions were provided in a folder by our office when you signed-up for surgery. Please review these instructions when you get home. If you have any further questions or concerns, please feel free to call the office at [phone] Pending Studies at Discharge: No Stand-Alone Forms: My [facility] [place], Smoking Cessation Skilled Items Patient informed of condition?: Yes DNR: No Discharge Level of Care: Acute rehab Communicable Disease: No Discharge Prognosis: Improving Lines: None Urinary Catheter: No Medications and DC Order Prescriptions: New hydrocodone-acetaminophen 5-325 mg tablet 1 tab PO Q6H PRN (Reason: pain) Qty: 40 RF: 0 Continued multivitamin Tablet 1 tab PO DAILY Qty: 0 RF: 0 ascorbic acid (vitamin C) [Vitamin C] 500 mg Tablet 500 mg PO BID Qty: 0 RF: 0 ibuprofen 200 mg Tablet 200 - 600 mg PO Q4H PRN (Reason: Pain) Qty: 0 RF: 0 vitamin B complex Tablet 1 tab PO QAM Qty: 0 RF: 0 Vision Formula(B-H-F-Zn-Se-Cu) 1,000 unit-60 mg-30 unit Tablet 1 tab PO DAILY Qty: 0 RF: 0 vitamin E 100 unit Capsule 100 unit PO BID Qty: 0 RF: 0 coenzyme Q10 [CoQ-10] 100 mg Capsule 100 mg PO QAM Qty: 0 RF: 0 cholecalciferol (vitamin D3) [Vitamin D3] 1,000 unit Tablet 1,000 unit PO QAM 90 Days Qty: 90 RF: 3 arnica 20 % Tincture 1 applic TOPICAL DIRECTED PRN (Reason: Pain) RF: 0 Probiotic 10 billion cell Capsule 1 cap PO TIDM RF: 0 collagen (bovine) 100 % Powder 1 applic TOPICAL DAILY RF: 0 acetaminophen [Tylenol Extra Strength] 500 mg Tablet 1,000 mg PO DIRECTED PRN (Reason: Pain) RF: 0 garlic 500 mg Capsule 500 mg PO DAILY RF: 0 celecoxib [Celebrex] 200 mg Capsule 200 mg PO DAILY PRN (Reason: Pain) RF: 0 Actalin 1 tab PO QAM RF: 0 diclofenac sodium 1 % Gel 2 g TOPICAL QID RF: 0 Discharge Orders: Discharge Order (Routine); Ordered 11/21/20 Ordered By: Xiang Fuchs Admission Data Admit Date/Time: 11/20/20 11:30 Attending Provider: Xiang Fuchs Admit Provider: Xiang Fuchs Primary Care Provider: Stephanie Bruner Other Providers: [facility] Other Interventions: Discharge Summary Assessment (RN) Last Done: 11/22/20 11:38
== END 2020-11-22 13:17 | DRG 483 ==
LOC: ASU 06:12 → PACUINP 11:30 → 3W 13:27

== ENCOUNTER 2025-02-07 10:51 | Observation (INO) ==
--- NOTE | 2025-02-07 11:41 | Emergency Department Note ---
Impression & Plan Acute epigastric pain, Elevated LFTs ED Provider Note Provider: Hudson Reynoso MD CHIEF COMPLAINT: Upper abdominal pain to chest and left shoulder HISTORY OF PRESENT ILLNESS: Patient is a 84-year-old female history of hypothyroidism and hyperlipidemia presenting here today brought by caregiver from home. Resides at [facility]. Evidently had an okay day yesterday went out shopping and exercised. Caregiver states that she came around 9 AM and the patient was partially closed wrapped in a blanket holding her upper abdomen complaining of pain. Later complained of some chest to left shoulder pain. Evidently has a history of similar with diverticulitis although denies lower abdominal pain to me. No nausea or vomiting. Pain was much worse earlier is improved some according to caregiver. No trauma or falls recently or reported. Patient denies headache or fever. Did not take anything for the pain earlier today. Did have some cereal for breakfast. PAST MEDICAL HISTORY: As noted above MEDICATIONS: Reviewed home medication list SOCIAL HISTORY: Resides at [facility]. PHYSICAL EXAM: GENERAL: alert and oriented in no acute distress on stretcher Head: normocephalic and atraumatic EYES: No injection, discharge or icterus. PERRL, EOMI. NECK: Trachea midline. Supple. ENT: Mucous membranes pink and moist. Pharynx without erythema or exudate. LUNGS: Airway patent. No retractions. Breath sounds clear with good air entry bilaterally. HEART: Regular rate and rhythm. No chest wall tenderness ABDOMEN: Soft and non-tender, without guarding or rebound. No hepatosplenomegaly or masses BACK: No midline tenderness, no SI joint tenderness. No bilateral flank tenderness. SKIN: Acyanotic, warm, dry, without rashes EXTREMITIES: Without swelling, tenderness or deformity NEUROLOGICAL: No focal deficits. No aphasia. No facial droop or slurred speech. Normal strength and tone in the extremities. Sensation to gross touch normal. Ambulatory. EK bpm normal sinus rhythm. Left axis. No acute ST segment elevation or depression with a QTc of 445. CONTINUOUS CARDIAC MONITORING: was ordered and showed a heart rate of bpm in Patient's laboratory studies and imaging reviewed. Differential includes Appendicitis, infections, diverticulitis, UTI, obstruction, mesenteric ischemia, aortic pathology, inflammatory bowel disease, renal colic, PUD, pancreatitis, biliary pathology, hernia, volvulus, constipation, as well as other pathologies. IMPRESSION/MEDICAL DECISION MAKING: Limitations of the patient's memory issues as far as exact course but seemingly some upper abdominal discomfort midline today some radiation of the chest and left shoulder. EKG and troponin are sent and a CT of the chest completed to exclude pulmonary etiologies including possible PE. Seems less likely. Question more of a GI issue. Lipase and imaging of the abdomen pelvis with CT was completed to look for signs of cholecystitis, appendicitis, diverticulitis, perforation, bowel obstruction, or pancreatitis among others. Doubt this represents a kidney stone. Doubt dissection. Given some Tylenol here for discomfort. 1 view chest x-ray per my review and interpretation as well as radiology report without significant abnormality noted. Laboratory studies here note no significant leukocytosis or anemia. Chemistries returned without anemia or leukocytosis. No second electrolyte abnormality or renal dysfunction. No evidence of pancreatitis. Troponin is normal. Bilirubin 1.1, AST 121, ALT 65, alkaline phosphatase 115 all just slightly elevated. CT imaging here of the chest abdomen pelvis per radiology reports without evidence of acute pulmonary pathology/PE or acute intra-abdominal findings in particular no noted findings of acute cholecystitis with few gallstones. Reassessment patient reports that she still having some discomfort. Not as severe as previously. Do question if some of this could have been a transient choledocholithiasis but she does not appear to have fever or infection and doubt cholangitis. Did not seem to have significant obstructive pathology bilirubin is only 1.1. Again does not seem consistent with acute cholecystitis. Will give a dose of Toradol to see if this additionally assist with her pain. Discussed with her caregiver as well as family (Tasha) via phone. Daughter is recovering from shingles at home home and could possibly watch her this evening but believes it be better given the patient's memory issues and her significant comfort if she is observed here overnight. Patient in agreement. Did have a somewhat fatty meal yesterday likely contributing. Hospitalist team contacted. DIAGNOSIS: Epigastric pain, gallstones DISPOSITION: Hospitalist will evaluate Patient was agreeable with this plan. Past Med/Surg History Problem List (Updated 02/07/25 @ 14:28 by Hudson Reynoso M.D.) Elevated LFTs (Acute) Acute epigastric pain (Acute) Pain in knee region after replacement of knee joint Status post right hip replacement (~02/2021) Left knee pain Encounter for pre-operative examination Status post reverse total replacement of right shoulder (~11/2020) Status post reverse total replacement of left shoulder Left Reverse TSA (08/04/20): LMA#4 iGel, atraumatic insertion x1 + PNB at [facility] Anemia No hx of blood transfusions Medical History Anemia No hx of blood transfusions Arthritis Questionable PMR but no definitive diagnosis Diabetes Diet controlled Dyslipidemia History of COVID-19 Dx 08/05/20 ([facility]), quarantined x 14 days, asymptomatic History of seizure Childhood, stopped anticonvulsants at age 41 (no seizures since childhood) Hypothyroidism Was on Nature thyroid in the past - no longer taking- taking OTC thyroid supplement (Actalin). TSH at [facility] appt on 02/18/21 minimally elevated with normal free T4. Numbness and tingling of both lower extremities s/p knee surgery (also possible diabetic neuropathy component) Osteoarthritis Surgical History History of appendectomy History of bilateral tubal ligation History of cholecystectomy History of left cataract surgery History of partial knee replacement Left History of reverse total replacement of right shoulder joint History of right cataract surgery Hx of arthroscopic knee surgery Left (2016) Status post reverse total replacement of left shoulder Left Reverse TSA (08/04/20): LMA#4 iGel, atraumatic insertion x1 + PNB at [facility] Social History Smoking Status: Never smoker Second Hand Exposure: No; Do You Dip or Chew Tobacco: No; Hx Alcohol Use: No Hx Substance Use: No Preferred Language: Syriac Communication Ability: Effective Assistant Brand Manager Required: No Beliefs That Will Affect Care: None marital status: Current Living Situation: Spouse Feels Safe at Home: Yes Assistive Devices: Cane and Denture - Lower Allergies Allergies Allergy/AdvReac Type Severity Reaction Status Date / Time nickel AdvReac Unknown Skin Verified 02/26/21 05:40 irritation Home Meds Home Medications Medication Instructions Recorded Confirmed ascorbic acid (vitamin C) 500 mg 500 mg PO BID ##0 11/15/16 02/07/25 tablet (Vitamin C) ibuprofen 200 mg tablet 200 - 600 mg PO Q4H PRN Pain #0 11/15/16 02/07/25 tabs multivitamin 1 tab PO QAM #0 tabs 11/15/16 02/07/25 vitamin B complex 1 tab PO QAM ##0 11/15/16 02/07/25 cholecalciferol (vitamin D3) 25 1,000 unit PO QAM 90 days #90 tabs 12/13/17 02/07/25 mcg (1,000 unit) tablet (Vitamin D3) coenzyme Q10 100 mg capsule 100 mg PO QAM #0 caps 12/13/17 02/07/25 (CoQ-10) acetaminophen 500 mg tablet 1,000 mg PO DIRECTED PRN Pain 08/16/18 02/07/25 (Tylenol Extra Strength) rosuvastatin 10 mg tablet 10 mg PO QAM 04/01/24 02/07/25 sertraline 50 mg tablet 50 mg PO QAM 04/01/24 02/07/25 empagliflozin 25 mg tablet 25 mg PO QAM 02/07/25 02/07/25 (Jardiance) levothyroxine 50 mcg tablet 50 mcg PO [id number] 02/07/25 02/07/25 Previous Rx's Medication Instructions Recorded aspirin 81 mg tablet,delayed 81 mg PO BID #84 tabs 02/25/21 release amoxicillin 500 mg tablet 2,000 mg (4 x 500 mg) PO ONCE PRN 04/09/21 prophylaxis #4 tabs Results & Data (ED) Vital Signs Vital Signs - 24 hr 02/07/25 11:12 02/07/25 11:37 02/07/25 12:18 Temperature 36.7 C Temperature Source Temporal Artery Scan Pulse Rate 82 71 Pulse Rate [Apical] Respiratory Rate 20 Respiratory Effort / Characteristics Non-Labored Spontaneous Respiratory Depth Normal Respiratory Pattern Blood Pressure 160/94 H Blood Pressure [Right Arm] Blood Pressure Mean 116 Blood Pressure Mean [Right Arm] Blood Pressure Position [Right Arm] Pulse Oximetry 95 95 Oxygen Delivery Method Room Air Room Air Sepsis Recent Fever Within 48 Hours No Sepsis New/Unexplained Change in Mental Status No Sepsis Action Taken by Nursing No Action Required 02/07/25 12:30 02/07/25 13:30 02/07/25 15:00 Temperature Temperature Source Pulse Rate 76 Pulse Rate [Apical] 71 77 Respiratory Rate 18 20 18 Respiratory Effort / Characteristics Non-Labored Spontaneous Non-Labored Spontaneous Respiratory Depth Normal Normal Respiratory Pattern Regular Blood Pressure 181/100 H Blood Pressure [Right Arm] 156/70 H 159/81 H Blood Pressure Mean 128 Blood Pressure Mean [Right Arm] 98 107 Blood Pressure Position [Right Arm] Semi-fowlers Pulse Oximetry 95 93 94 Oxygen Delivery Method Room Air Room Air Sepsis Recent Fever Within 48 Hours Sepsis New/Unexplained Change in Mental Status Sepsis Action Taken by Nursing Laboratory Data 02/07/25 Unknown 02/07/25 Unknown Lab Results 02/07/25 Range/Units Unknown WBC 7.42 (4.8-10.8) K/ul RBC 5.13 (4.20-5.40) M/uL Hgb 15.4 (12.0-16.0) g/dl Hct 46.3 (37.0-47.0) % MCV 90.3 (80.0-100.0) fL MCH 30.0 (25.0-34.0) pg MCHC 33.3 (32.0-36.0) g/dL RDW Std Deviation 44.1 (36.4-46.3) fL RDW Coeff of Abraham 13.2 (11.5-14.5) % Plt Count 267 (130-400) K/uL MPV 9.7 (9.4-12.4) fL Immature Gran % (Auto) 0.3 % Neut % (Auto) 74.0 % Lymph % (Auto) 17.4 % Hemphill % (Auto) 7.0 % Eos % (Auto) 0.9 % Baso % (Auto) 0.4 % Neut # (Auto) 5.49 (1.40-6.50) K/uL Lymph # (Auto) 1.29 (1.20-3.40) K/uL Hemphill # (Auto) 0.52 (0.11-0.59) K/uL Eos # (Auto) 0.07 (0.00-0.50) K/uL Baso # (Auto) 0.03 (0.00-0.20) K/uL Immature Gran # (Auto) 0.02 (0.01-0.20) K/uL PT 10.3 (9.0-12.0) Seconds INR 1.0 (0.9-1.1) APTT 24 (21-31) Seconds PTT Ratio 0.9 Sodium 137 (136-145) mmol/L Potassium 4.3 (3.5-5.1) mmol/L Chloride 99 (98-107) mmol/L Carbon Dioxide 30 (21-32) mmol/L Anion Gap 8 (3-11) BUN 15 (6-23) mg/dl Creatinine 0.75 (0.6-1.2) mg/dl Est Cr Clr Drug Dosing Not Reportable eGFR 78.95 BUN/Creatinine Ratio 20.0 (10-20) Glucose 221 H (70-99(Fasting)) mg/dl Calcium 10.0 (8.6-10.3) mg/dl Total Bilirubin 1.1 H (0.2-1.0) mg/dl AST 121 H (13-39) U/L ALT 65 H (7-52) U/L Alkaline Phosphatase 115 H (34-104) U/L Troponin I High Sens 4.0 (0-14) pg/ml Total Protein 7.3 (6.0-8.3) gm/dl Albumin 4.1 (3.4-5.0) gm/dl Globulin 3.2 (2.5-4.0) gm/dl Albumin/Globulin Ratio 1.3 (0.9-2) Lipase 32 (11-82) U/L Administered Medications Discontinued Medications Acetaminophen (Ofirmev) 1,000 mg in 100 mls @ 400 mls/hr IV NOW STA Stop: 02/07/25 11:50 Last Infusion: 02/07/25 12:26 Dose: Infused Documented By: Admin: 02/07/25 11:51 Dose: 400 mls/hr Documented By: MMF Ioversol (Optiray 320 125ml) 119 ml IV ONCE ONE Stop: 02/07/25 12:58 Last Admin: 02/07/25 12:57 Dose: 119 ml Documented By: KATELYNK Ketorolac Tromethamine (Ketorolac Tromethamine 15 Mg/Ml Vial) 10 mg IV NOW STA Stop: 02/07/25 14:27 Last Admin: 02/07/25 15:05 Dose: 10 mg Documented By: RUFINO Imaging Data Radiologist's Impression: Chest X-Ray 02/07/25 11:27 XR chest 1V portable CLINICAL HISTORY: CP to abd COMPARISON STUDY: 07/14/2024 FINDINGS: Heart size and pulmonary vasculature are normal. There is moderate elevation of the right hemidiaphragm. No consolidation or pleural effusion seen. No pneumothorax. Stable old left rib fractures. Stable shoulder prostheses. IMPRESSION: No acute findings. ACT 112: Negative or not required by law. Electronically signed by: Theo Robertson M.D. 02/07/2025 12:05 PM Abdomen/Pelvis CT 02/07/25 11:[address] WITH IV CONTRAST HISTORY: upper abd to CP TECHNIQUE: Multiaxial CT images of the abdomen and pelvis were performed following the IV administration of 120 cc of Optiray, A dose lowering technique was utilized adhering to the principles of ALARA. COMPARISON STUDY: 07/15/2024 FINDINGS: ABDOMEN: Multiple small liver cysts are stable. There are a few small gallstones without evidence of acute cholecystitis. Spleen, pancreas, and adrenal glands are unremarkable. Kidneys show no hydronephrosis or calculi. There are scattered atherosclerotic calcifications. No abdominal aortic aneurysm. Pelvis: Uterus and adnexa are grossly unremarkable. Urinary bladder is nondistended. There is extensive sigmoid diverticulosis. No acute diverticulitis. No bowel inflammation or obstruction seen. No free fluid, free air, or abscess. No enlarged adenopathy. Osseous structures: There is stable height loss at a few lower thoracic vertebral bodies. Stable diffuse spinal degenerative changes. Stable left rib fractures. No acute osseous findings. IMPRESSION: No acute findings. ACT 112: Negative or not required by law. The above report was generated using voice recognition software. It may contain grammatical, syntax or spelling errors. Electronically signed by: Theo Robertson M.D. 02/07/2025 1:16 PM Chest CTA 02/07/25 11:36 CT angio chest PE protocol CT DOSE: 2298.01 mGy.cm HISTORY: PE, abd to CP. TECHNIQUE: Multiple CTA images of the chest were obtained after the intravenous administration of 120 ml Optiray. Coronal and sagittal MIPS were obtained from the axial data set and were submitted for review. All measurements were obtained according to NASCET criteria. A dose lowering technique was utilized adhering to the principles of ALARA. COMPARISON STUDY: 07/15/2024 FINDINGS: There is moderate elevation of the right hemidiaphragm with minimal atelectasis at the right lung base. No pulmonary consolidation or pleural effusion. No pneumothorax. Stable right thyroid lobe nodule measuring 2 cm. No enlarged adenopathy. No pericardial effusion. Stable moderate hiatal hernia. No thoracic aortic dissection or aneurysm seen. No pulmonary embolism. Stable displaced left rib fractures. Stable small cysts in the visualized upper liver. Stable mild loss at a few lower thoracic vertebral bodies. IMPRESSION: No pulmonary embolism or pneumonia seen. ACT 112: Negative or not required by law. The above report was generated using voice recognition software. It may contain grammatical, syntax or spelling errors. Electronically signed by: Theo Robertson M.D. 02/07/2025 1:12 PM Discharge Plan Visit Data Chief Complaint: Chest Pain Stated Complaint: ABD PAIN, CHEST PAIN, BACK PAIN ED Provider: Hudson Reynoso Discharge Problem: Acute epigastric pain, Elevated LFTs Patient Disposition: Being Evaluated by Hospitalist Condition: Fair Forms Stand Alone Forms: My [facility] [employer] Prescriptions Prescriptions: No Action multivitamin Tablet 1 tab PO QAM Qty: 0 ascorbic acid (vitamin C) [Vitamin C] 500 mg Tablet 500 mg PO BID Qty: 0 ibuprofen 200 mg Tablet 200 - 600 mg PO Q4H PRN (Reason: Pain) Qty: 0 vitamin B complex Tablet 1 tab PO QAM Qty: 0 coenzyme Q10 [CoQ-10] 100 mg Capsule 100 mg PO QAM Qty: 0 cholecalciferol (vitamin D3) [Vitamin D3] 1,000 unit Tablet 1,000 unit PO QAM 90 Days Qty: 90 aspirin 81 mg tablet,delayed release (DR/EC) 81 mg PO BID Qty: 84 0RF amoxicillin 500 mg tablet 2,000 mg PO ONCE PRN (Reason: prophylaxis) Qty: 4 2RF Rx Instructions: ONE HOUR PRIOR TO DENTAL PROCEDURE acetaminophen [Tylenol Extra Strength] 500 mg Tablet 1,000 mg PO DIRECTED PRN (Reason: Pain) sertraline 50 mg tablet 50 mg PO QAM rosuvastatin 10 mg tablet 10 mg PO QAM levothyroxine 50 mcg tablet 50 mcg PO [id number] Rx Instructions: do not take on sundays Jardiance 25 mg tablet 25 mg PO QAM Referrals Referrals: Stephanie Bruner, [Primary Care Provider] -
[2025-02-07] MEDS: ACETAMINOPHEN 1,000 MG/100 ML VIAL IV STA (11:51)
[2025-02-07 12:03] LABS: Hematocrit (blood only) 46.3 % (37.0-47.0); Hemoglobin 15.4 g/dl (12.0-16.0); Immature Granulocytes # (auto) 0.02 K/uL (0.01-0.20); Immature Granulocytes % (auto) 0.3 %; Mean Corpuscular Hemoglobin 30.0 pg (25.0-34.0); Mean Corpuscular Volume 90.3 fL (80.0-100.0); Platelet Count 267 K/uL (130-400); RDW Standard Deviation 44.1 fL (36.4-46.3); Red Blood Count 5.13 M/uL (4.20-5.40); White Blood Count 7.42 K/ul (4.8-10.8)
--- NOTE | 2025-02-07 12:07 | XRay Report ---
XR chest 1V portable CLINICAL HISTORY: CP to abd COMPARISON STUDY: 07/14/2024 FINDINGS: Heart size and pulmonary vasculature are normal. There is moderate elevation of the right h emidiaphragm. No consolidation or pleural effusion seen. No pneumothorax. Stable old left rib fractur es. Stable shoulder prostheses. IMPRESSION: No acute findings. ACT 112: Negative or not required by law. Electronically signed by: Theo Robertson M.D. 02/07/2025 12:05 PM
[2025-02-07 12:28] LABS: Alanine Aminotransferase 65 U/L (7-52); Albumin Globulin Ratio 1.3 (0.9-2); Albumin Level 4.1 gm/dl (3.4-5.0); Alkaline Phosphatase 115 U/L (34-104); Anion Gap 8 (3-11); Bilirubin,Total 1.1 mg/dl (0.2-1.0); Blood Urea Nitrogen 15 mg/dl (6-23); Calcium 10.0 mg/dl (8.6-10.3); Carbon Dioxide 30 mmol/L (21-32); Chloride 99 mmol/L (98-107); Globulin 3.2 gm/dl (2.5-4.0); Glucose 221 mg/dl (70-99(Fasting)); Lipase 32 U/L (11-82); Potassium 4.3 mmol/L (3.5-5.1); Sodium 137 mmol/L (136-145); Total Protein 7.3 gm/dl (6.0-8.3)
[2025-02-07 12:33] LABS: INR 1.0 (0.9-1.1); Partial Thromboplastin Time 24 Seconds (21-31); Prothrombin Time 10.3 Seconds (9.0-12.0)
[2025-02-07] MEDS: OPTIRAY 320 125ml IV ONE (12:57)
--- NOTE | 2025-02-07 13:14 | CT Scan Report ---
CT angio chest PE protocol CT DOSE: 2298.01 mGy.cm HISTORY: PE, abd to CP. TECHNIQUE: Multiple CTA images of the chest were obtained after the intravenous administration of 120 ml Optiray. Coronal and sagittal MIPS were obtained from the axial data set and were submitted for review. All measurements were obtained according to NASCET criteria. A dose lowering technique was u tilized adhering to the principles of ALARA. COMPARISON STUDY: 07/15/2024 FINDINGS: There is moderate elevation of the right hemidiaphragm with minimal atelectasis at the righ t lung base. No pulmonary consolidation or pleural effusion. No pneumothorax. Stable right thyroid lo be nodule measuring 2 cm. No enlarged adenopathy. No pericardial effusion. Stable moderate hiatal her behzad. No thoracic aortic dissection or aneurysm seen. No pulmonary embolism. Stable displaced left rib fractures. Stable small cysts in the visualized upper liver. Stable mild loss at a few lower thoraci c vertebral bodies. IMPRESSION: No pulmonary embolism or pneumonia seen. ACT 112: Negative or not required by law. The above report was generated using voice recognition software. It may contain grammatical, syntax o r spelling errors. Electronically signed by: Theo Robertson M.D. 02/07/2025 1:12 PM
--- NOTE | 2025-02-07 13:18 | CT Scan Report ---
ABDOMEN AND PELVIS CT WITH IV CONTRAST HISTORY: upper abd to CP TECHNIQUE: Multiaxial CT images of the abdomen and pelvis were performed following the IV administrat ion of 120 cc of Optiray, A dose lowering technique was utilized adhering to the principles of ALARA . COMPARISON STUDY: 07/15/2024 FINDINGS: ABDOMEN: Multiple small liver cysts are stable. There are a few small gallstones without evidence of acute cholecystitis. Spleen, pancreas, and adrenal glands are unremarkable. Kidneys show no hydroneph rosis or calculi. There are scattered atherosclerotic calcifications. No abdominal aortic aneurysm. Pelvis: Uterus and adnexa are grossly unremarkable. Urinary bladder is nondistended. There is extensi ve sigmoid diverticulosis. No acute diverticulitis. No bowel inflammation or obstruction seen. No daniel e fluid, free air, or abscess. No enlarged adenopathy. Osseous structures: There is stable height loss at a few lower thoracic vertebral bodies. Stable diff use spinal degenerative changes. Stable left rib fractures. No acute osseous findings. IMPRESSION: No acute findings. ACT 112: Negative or not required by law. The above report was generated using voice recognition software. It may contain grammatical, syntax o r spelling errors. Electronically signed by: Theo Robertson M.D. 02/07/2025 1:16 PM
[2025-02-07] MEDS: KETOROLAC TROMETHAMINE 15 MG/ML VIAL IV STA (15:05)
--- NOTE | 2025-02-07 18:50 | Electrocardiogram Report ---
Test Reason : Blood Pressure : */* mmHG Vent. Rate : 86 BPM Atrial Rate : 86 BPM P-R Int : 146 ms QRS Dur : 84 ms QT Int : 372 ms P-R-T Axes : 33 -34 37 degrees QTcB Int : 445 ms Normal sinus rhythm Left axis deviation Poor R wave progression, consider anterior MD vs. lead placement vs. LVH Abnormal ECG When compared with ECG of 15-Jul-2024 03:31, No significant change was found Confirmed by Maih Rodas ([id number]) on 02/07/2025 6:50:01 PM Referred By: Confirmed By: Miah Rodas
[2025-02-07] MEDS ORDERED: GLUCOSE 10 TAB/TUBE PO PRN (20:59)
[2025-02-07] MEDS ORDERED: DEXTROSE 50% 50 ML SYRINGE IV PRN (20:59)
[2025-02-07] MEDS ORDERED: GLUCAGON FOR INJ 1 MG VIAL SQ PRN (20:59)
[2025-02-07] MEDS ORDERED: CARBOHYDRATES FOR HYPOGLYCEMIA PO PRN (20:59)
[2025-02-07] MEDS ORDERED: GLUCOSE 40% GEL 15 GM TUBE PO PRN (20:59)
--- NOTE | 2025-02-07 21:02 | History & Physical Report ---
Date of Service February 07, 2025 Assessment & Plan (1) Elevated LFTs: (2) Acute epigastric pain: Plan #Abnormal LFTs - will trend at this time - started on clears overnight, if doing well, will advance to low fat diet - ordered HIDA, however, if pt is overall improving, LFTs improving, this can be done as outpatient - hold statin - pain control with tramadol prn #HLD - hold statin #Hypothyroidism - cont levothyroxine #DM II - sliding scale - short acting insulin - hypoglycemic protocol #DVT ppx: SCDs, ambulation History of Present Illness Chief Complaint: abdominal pain Primary Care Provider: Stephanie Bruner, DO 84 yr old F with PMHx of HTN, HLD, DM II, hypothyroidism, anxiety / depression brought to the hospital for the evaluation of abdominal pain. Pt was found by caregiver curled up, half clothed, clutching her stomach. Pt is not able to give further history. ED workup revealed abnormal LFTs and gallstones but no acute cystitis. She currently had no complaints Allergies Allergy/AdvReac Type Severity Reaction Status Date / Time nickel AdvReac Unknown Skin Verified 02/26/21 05:40 irritation Home Medications Medication Instructions Recorded Confirmed Type ascorbic acid (vitamin C) 500 mg 500 mg PO BID ##0 11/15/16 02/07/25 History tablet (Vitamin C) ibuprofen 200 mg tablet 200 - 600 mg PO Q4H PRN Pain #0 11/15/16 02/07/25 History tabs multivitamin 1 tab PO QAM #0 tabs 11/15/16 02/07/25 History vitamin B complex 1 tab PO QAM ##0 11/15/16 02/07/25 History cholecalciferol (vitamin D3) 25 1,000 unit PO QAM 90 days #90 tabs 12/13/17 02/07/25 History mcg (1,000 unit) tablet (Vitamin D3) coenzyme Q10 100 mg capsule 100 mg PO QAM #0 caps 12/13/17 02/07/25 History (CoQ-10) acetaminophen 500 mg tablet 1,000 mg PO DIRECTED PRN Pain 08/16/18 02/07/25 History (Tylenol Extra Strength) aspirin 81 mg tablet,delayed 81 mg PO BID #84 tabs 02/25/21 02/07/25 Rx release amoxicillin 500 mg tablet 2,000 mg (4 x 500 mg) PO ONCE PRN 04/09/21 02/07/25 Rx prophylaxis #4 tabs rosuvastatin 10 mg tablet 10 mg PO QAM 04/01/24 02/07/25 History sertraline 50 mg tablet 50 mg PO QAM 04/01/24 02/07/25 History empagliflozin 25 mg tablet 25 mg PO QAM 02/07/25 02/07/25 History (Jardiance) levothyroxine 50 mcg tablet 50 mcg PO 6XWK 02/07/25 02/07/25 History Past Med/Surg History Problem List (Updated 02/07/25 @ 14:28 by Hudson Reynoso M.D.) Elevated LFTs (Acute) Acute epigastric pain (Acute) Pain in knee region after replacement of knee joint Status post right hip replacement (~02/2021) Left knee pain Encounter for pre-operative examination 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 TSH at [facility] appt on 02/18/21 minimally elevated with normal free T4. Numbness and tingling of both lower extremities s/p knee surgery (also possible diabetic neuropathy component) Osteoarthritis Surgical History History of appendectomy History of bilateral tubal ligation History of cholecystectomy History of left cataract surgery History of partial knee replacement Left History of reverse total replacement of right shoulder joint History of right cataract surgery Hx of arthroscopic knee surgery Left (2016) Status post reverse total replacement of left shoulder Left Reverse TSA (08/04/20): LMA#4 iGel, atraumatic insertion x1 + PNB at [facility] Social History Smoking Status: Never smoker Second Hand Exposure: No; Do You Dip or Chew Tobacco: No; Hx Alcohol Use: No Hx Substance Use: No Preferred Language: Stateless Communication Ability: Effective Clothing Cutter Required: No Beliefs That Will Affect Care: None marital status: Current Living Situation: Spouse Feels Safe at Home: Yes Assistive Devices: Cane and Denture - Lower Review of Systems Review of Systems: Comprehensive ROS completed and is otherwise negative. Physical Exam Physical Exam: Gen: no acute distress, lying in bed comfortable HEENT: NC/AT, MMM Lungs: nonlabored breathing, CTAB CVS: s1s2nl, RRR Abd: nl bowel sounds, soft, NT / ND : no castro Ext: no edema Neuro: AAOx3 Psych: calm, cooperative Results & Data Results & Data Vital Signs (Past 12 Hours) Vital Signs Temp Pulse Pulse Resp BP BP Pulse Ox 02/07/25 19:00 66 20 169/92 H 96 02/07/25 18:00 66 15 177/96 H 95 02/07/25 17:00 70 18 135/84 93 02/07/25 16:26 69 02/07/25 16:00 73 23 132/69 94 02/07/25 15:00 77 18 159/81 H 94 02/07/25 13:30 76 20 181/100 H 93 02/07/25 12:30 71 18 156/70 H 95 02/07/25 12:18 71 02/07/25 11:37 95 02/07/25 11:12 36.7 C 82 20 160/94 H 95 O2 Del Method 02/07/25 19:00 Room Air 02/07/25 18:00 Room Air 02/07/25 17:00 Room Air 02/07/25 16:26 02/07/25 16:00 Room Air 02/07/25 15:00 Room Air 02/07/25 13:30 02/07/25 12:30 Room Air 02/07/25 12:18 02/07/25 11:37 Room Air 02/07/25 11:12 Room Air PG Care Time/CCT Total # of Minutes Spent Total Time Spent with Patient: Total time spent is greater than 50% in coordination of care (as documented) at patient's floor/unit and/or counseling patient: Coding Level of Care Code 88787 INT INP/OBS CARE MIN Diagnoses Elevated LFTs R79.89 Acute epigastric pain R10.13
[2025-02-07] MEDS: INSULIN ASPART PER UNIT CHARGE SC SCH (21:28)
[2025-02-07 22:26] LABS: Appearance Urine Clear (Clear); Glucose Urine UA 3+ (Negative)
[2025-02-07] MEDS: ASPIRIN 81 MG ECTAB PO SCH (23:33)
[2025-02-08] MEDS: LEVOTHYROXINE SODIUM 50 MCG TABLET PO SCH (06:31)
[2025-02-08 07:12] LABS: Hematocrit (blood only) 43.5 % (37.0-47.0); Hemoglobin 14.4 g/dl (12.0-16.0); Mean Corpuscular Hemoglobin 29.9 pg (25.0-34.0); Mean Corpuscular Volume 90.2 fL (80.0-100.0); Platelet Count 239 K/uL (130-400); RDW Standard Deviation 44.1 fL (36.4-46.3); Red Blood Count 4.82 M/uL (4.20-5.40); White Blood Count 4.89 K/ul (4.8-10.8)
[2025-02-08 07:37] LABS: Alanine Aminotransferase 234.0 U/L (7-52); Albumin Level 3.8 gm/dl (3.4-5.0); Alkaline Phosphatase 147.0 U/L (34-104); Anion Gap 5.0 (3-11); Blood Urea Nitrogen 11.0 mg/dl (6-23); Calcium 9.0 mg/dl (8.6-10.3); Carbon Dioxide 31.0 mmol/L (21-32); Chloride 102.0 mmol/L (98-107); Creatinine Clr Calc Pharmacy 64.4 ml/min; Glucose 132.0 mg/dl (70-99(Fasting)); Magnesium 2.2 mg/dl (1.7-2.4); Potassium 4.3 mmol/L (3.5-5.1); Sodium 138.0 mmol/L (136-145)
[2025-02-08 07:46] LABS: Bilirubin,Total 1.6 mg/dl (0.2-1.0); Total Protein 6.4 gm/dl (6.0-8.3)
[2025-02-08] MEDS: SERTRALINE HCL 50 MG TABLET PO SCH (08:59)
--- NOTE | 2025-02-08 14:18 | Hospitalist Progress Note ---
Date of Service February 08, 2025 Assessment & Plan (1) Elevated LFTs: (2) Acute epigastric pain: Plan 84 yr old F with PMHx of HTN, HLD, DM II, hypothyroidism, anxiety / depression brought to the hospital for the evaluation of abdominal pain. Patient is not able to give much history. Per report, she had ice cream and BLT the night before and her caregiver found her the morning of 02/07/25 half clothed and clutching her abdomen. In the ED, workup revealed abnormal LFTs, gallstones in the GB. Pt thus admitted for further evaluation. #Abnormal LFTs - trending up - though tolerating full liquids and will continue to advance diet - HIDA pending - hold statin - will request general surgery eval #HLD - hold statin #Hypothyroidism - cont levothyroxine #DM II - sliding scale - short acting insulin - hypoglycemic protocol #DVT ppx: SCDs, ambulation 02/07: pt's daughter at bedside 02/08: pt's daughter at bedside Admission and Anticipated Discharge Date Admission Date: February 07, 2025 Subjective No acute events overnight Currently no new complaints. Abdominal pain has resolved. Ambulating with cane assistance Review of Systems Review of Systems: Comprehensive ROS completed and is otherwise negative. Physical Exam Physical Exam: Gen: no acute distress, lying in bed comfortable HEENT: NC/AT, MMM Lungs: nonlabored breathing, CTAB CVS: s1s2nl, RRR Abd: nl bowel sounds, soft, NT / ND : no castro Ext: no edema Neuro: awake and alert Psych: calm, cooperative Results & Data Results & Data Vital Signs (Past 12 Hours) Vital Signs Temp Pulse Resp BP Pulse Ox O2 Del Method 02/08/25 07:27 36.4 C L 75 18 161/83 H 94 Room Air PG Care Time/CCT Total # of Minutes Spent Total Time Spent with Patient: Total time spent is greater than 50% in coordination of care (as documented) at patient's floor/unit and/or counseling patient: Coding Level of Care Code 39062 SUB INP/OBS CARE 3/50MIN Diagnoses Elevated LFTs R79.89 Acute epigastric pain R10.13
[2025-02-08] MEDS: ONDANSETRON INJ 2 MG/ML 2 ML VIAL IV PRN (22:54)
[2025-02-08 23:22] VITALS: RESP 16
[2025-02-08] MEDS: BISMUTH SUBSALICYLATE 262 MG CHEW PO PRN (23:40)
[2025-02-09 07:05] VITALS: BP 128/79; TEMP 97.7; O2SAT 94
[2025-02-09 07:06] LABS: Alanine Aminotransferase 165.0 U/L (7-52); Albumin Level 3.8 gm/dl (3.4-5.0); Alkaline Phosphatase 139.0 U/L (34-104); Anion Gap 6.0 (3-11); Bilirubin,Total 0.8 mg/dl (0.2-1.0); Blood Urea Nitrogen 12.0 mg/dl (6-23); Calcium 8.9 mg/dl (8.6-10.3); Carbon Dioxide 29.0 mmol/L (21-32); Chloride 103.0 mmol/L (98-107); Creatinine Clr Calc Pharmacy 67.3 ml/min; Glucose 145.0 mg/dl (70-99(Fasting)); Magnesium 2.1 mg/dl (1.7-2.4); Potassium 4.1 mmol/L (3.5-5.1); Sodium 138.0 mmol/L (136-145); Total Protein 6.4 gm/dl (6.0-8.3)
--- NOTE | 2025-02-09 11:16 | Surgery Consultation ---
Date of Consultation February 09, 2025 Assessment & Plan (1) Elevated LFTs: (2) Acute epigastric pain: 84F with an episode of epigastric abdominal pain, cholelithiasis on imaging without acute cholecystitis and elevated LFTs that are trending down. T bili 0.8 from 1.6, AST 82 from 222, ALT 165, from 234, ALK P 139 from 147. No leukocytosis Pt is tolerating her low fat diet without symptoms Pt would like to go home. I have advised her to follow up with me in the office to further discuss possible cholecystectomy She should also follow up with her PCP and obtain outpatient follow up LFTs this week. Continue on a low fat diet at discharge History of Present Illness Attending Physician: Jossie Friend MD History of Present Illness 84F presented with PMHx of HTN, HLD, DM II, hypothyroidism, anxiety / depression presented to the ED on 02/07/25 with upper abdominal pain and elevated LFTs. A CT A/P performed revealed cholelithiasis without signs of acute cholecystitis. Her pain resolved but LFTs have remained elevated. A surgical consultation is requested. Today her LFTs are decreasing. Palmira denies pain and has been advanced to a carb consistent and low fat diet. She denies nausea. She also denies symptoms like this in the past although she had prior presentation with upper abdominal pain back in March 2024. Allergies Allergy/AdvReac Type Severity Reaction Status Date / Time nickel AdvReac Unknown Skin Verified 02/26/21 05:40 irritation Home Medications Medication Instructions Recorded Confirmed Type ascorbic acid (vitamin C) 500 mg 500 mg PO BID ##0 11/15/16 02/07/25 History tablet (Vitamin C) ibuprofen 200 mg tablet 200 - 600 mg PO Q4H PRN Pain #0 11/15/16 02/07/25 History tabs multivitamin 1 tab PO QAM #0 tabs 11/15/16 02/07/25 History vitamin B complex 1 tab PO QAM ##0 11/15/16 02/07/25 History cholecalciferol (vitamin D3) 25 1,000 unit PO QAM 90 days #90 tabs 12/13/17 02/07/25 History mcg (1,000 unit) tablet (Vitamin D3) coenzyme Q10 100 mg capsule 100 mg PO QAM #0 caps 12/13/17 02/07/25 History (CoQ-10) acetaminophen 500 mg tablet 1,000 mg PO DIRECTED PRN Pain 08/16/18 02/07/25 History (Tylenol Extra Strength) aspirin 81 mg tablet,delayed 81 mg PO BID #84 tabs 02/25/21 02/07/25 Rx release amoxicillin 500 mg tablet 2,000 mg (4 x 500 mg) PO ONCE PRN 04/09/21 02/07/25 Rx prophylaxis #4 tabs rosuvastatin 10 mg tablet 10 mg PO QAM 04/01/24 02/07/25 History sertraline 50 mg tablet 50 mg PO QAM 04/01/24 02/07/25 History empagliflozin 25 mg tablet 25 mg PO QAM 02/07/25 02/07/25 History (Jardiance) levothyroxine 50 mcg tablet 50 mcg PO 6XWK 02/07/25 02/07/25 History Patient History Medical History Anemia No hx of blood transfusions Arthritis Questionable PMR but no definitive diagnosis Diabetes Diet controlled Dyslipidemia History of COVID-19 Dx 08/05/20 ([facility]), quarantined x 14 days, asymptomatic History of seizure Childhood, stopped anticonvulsants at age 41 (no seizures since childhood) Hypothyroidism Was on Nature thyroid in the past - no longer taking- taking OTC thyroid supplement (Actalin). TSH at [facility] appt on 02/18/21 minimally elevated with normal free T4. Numbness and tingling of both lower extremities s/p knee surgery (also possible diabetic neuropathy component) Osteoarthritis Surgical History History of appendectomy History of bilateral tubal ligation History of cholecystectomy History of left cataract surgery History of partial knee replacement Left History of reverse total replacement of right shoulder joint History of right cataract surgery Hx of arthroscopic knee surgery Left (2016) Status post reverse total replacement of left shoulder Left Reverse TSA (08/04/20): LMA#4 iGel, atraumatic insertion x1 + PNB at [facility] Social History Smoking Status: Former smoker Second Hand Exposure: No; Do You Dip or Chew Tobacco: No; Hx Alcohol Use: No Hx Substance Use: No Preferred Language: Hungarian Communication Ability: Effective Buck Presser Required: No Beliefs That Will Affect Care: None marital status: Current Living Situation: Alone Feels Safe at Home: Yes Assistive Devices: Cane and Walker Physical Exam Constitutional: average body habitus; not ill appearing, not in distress and not diaphoretic Respiratory: normal respiratory effort; no respiratory distress, no labored breathing and does not use accessory muscles Cardiovascular: Rate/Rhythm: regular rate; not tachycardic Gastrointestinal (Abdomen): Inspection/Auscultation: abdomen normal to inspection; abdomen not distended Percussion/Palpation: abdomen soft; abdomen nontender and no guarding Results & Data Vital Signs (Past 12 Hours) Vital Signs Temp Pulse Resp BP BP Pulse Ox O2 Del Method 02/09/25 07:04 36.5 C 75 16 128/79 94 Room Air 02/08/25 23:21 37.0 C 85 16 128/72 93 Room Air Diagnostic Findings I have reviewed her Ct Cholelithiasis noted, no signs of acute cholecystitis on CT. PG Care Time/CCT Total # of Minutes Spent Total Time Spent with Patient: Total time spent is greater than 50% in coordination of care (as documented) at patient's floor/unit and/or counseling patient: Coding Level of Care Code 64267 IN/OBS CONSULT LVL 3,45M Diagnoses Elevated LFTs R79.89 Acute epigastric pain R10.13
--- NOTE | 2025-02-09 13:08 | Discharge Summary ---
Discharge Summary Date of Service February 09, 2025 Principal Dx & Hospital Course #1 = Principal Diagnosis (1) Elevated LFTs: (2) Acute epigastric pain: Plan 84 yr old F with PMHx of HTN, HLD, DM II, hypothyroidism, anxiety / depression brought to the hospital for the evaluation of abdominal pain. Patient is not able to give much history. Per report, she had ice cream and BLT the night before and her caregiver found her the morning of 02/07/25 half clothed and clutching her abdomen. In the ED, workup revealed abnormal LFTs, gallstones in the GB. Pt thus admitted for further evaluation. #Abnormal LFTs - trending up - tolerating low fat diet - hold statin and tyelnol at this time - prn tramadol for home - pt evaluated by general surgery- outpatient follow up for further eval - rpt LFT on 02/12 or 02/13- to be ordered by PCP #HLD - hold statin #Hypothyroidism - cont levothyroxine #DM II - sliding scale - short acting insulin - hypoglycemic protocol #DVT ppx: SCDs, ambulation 02/07: pt's daughter at bedside 02/08: pt's daughter at bedside 02/09: spoke with pt's daughter on the phone Admission HPI Per Admitting Provider 84 yr old F with PMHx of HTN, HLD, DM II, hypothyroidism, anxiety / depression brought to the hospital for the evaluation of abdominal pain. Pt was found by caregiver curled up, half clothed, clutching her stomach. Pt is not able to give further history. ED workup revealed abnormal LFTs and gallstones but no acute cystitis. She currently had no complaints Discharge Exam Gen: no acute distress, lying in bed comfortable HEENT: NC/AT, MMM Lungs: nonlabored breathing, CTAB CVS: s1s2nl, RRR Abd: nl bowel sounds, soft, NT / ND : no castro Ext: no edema Neuro: awake and alert Psych: calm, cooperative Discharge Plan Discharge Items Patient Disposition: Home - Self-Care Reason For Visit: ABDOMINAL PAIN Discharge Diagnosis: Cholelithiasis Condition on Discharge: Fair Activity: Resume your previous activity Non-emergency contact: Primary Care Provider and Surgeon Call non-emergency contact if: you have any medication questions and your symptoms worsen Follow-up/Referrals: Stephanie Bruner, DO [Primary Care Provider] - Brooks Hernandez DO [Physician] - (Please call the office to schedule follow up in the clinic in 1 week to discuss elective surgery to remove your gallbladder) Diet: Low Fat Addtl Attending Provider Instructions: You were admitted to the hospital for abdominal pain. You were found to have abnormal liver function test and imaging showing gallstones. Your liver function worsened initially but then improved. Your symptoms also improved. It is recommended that you eat low fat diet to help prevent further episodes of abdominal pain. You were evaluated by general surgery team and they are recommending you follow up with them in about 1 week. Please call their office Monday for appointment. You also need liver function blood test to be done on 02/12 or 02/13. This test will need to be ordered by your primary care doctor. Please call Monday to get this ordered. Continue to hold your statin and tylenol until liver function gets better and your primary doctor clears you to take them. You are medically stable for discharge. You will need to follow up with your primary care doctor in about 7 to 10 days. It was a pleasure being a part of your medical care team during your stay at [facility]. Pending Studies at Discharge: No Stand-Alone Forms: My [facility], Smoking Cessation Medications and DC Order Prescriptions: New tramadol 50 mg tablet 50 mg PO TID PRN (Reason: pain) Qty: 10 0RF Continued multivitamin Tablet 1 tab PO QAM Qty: 0 ascorbic acid (vitamin C) [Vitamin C] 500 mg Tablet 500 mg PO BID Qty: 0 ibuprofen 200 mg Tablet 200 - 600 mg PO Q4H PRN (Reason: Pain) Qty: 0 vitamin B complex Tablet 1 tab PO QAM Qty: 0 coenzyme Q10 [CoQ-10] 100 mg Capsule 100 mg PO QAM Qty: 0 cholecalciferol (vitamin D3) [Vitamin D3] 1,000 unit Tablet 1,000 unit PO QAM 90 Days Qty: 90 aspirin 81 mg tablet,delayed release (DR/EC) 81 mg PO BID Qty: 84 0RF amoxicillin 500 mg tablet 2,000 mg PO ONCE PRN (Reason: prophylaxis) Qty: 4 2RF Rx Instructions: ONE HOUR PRIOR TO DENTAL PROCEDURE sertraline 50 mg tablet 50 mg PO QAM levothyroxine 50 mcg tablet 50 mcg PO 6XWK Rx Instructions: do not take on sundays Jardiance 25 mg tablet 25 mg PO QAM Held acetaminophen [Tylenol Extra Strength] 500 mg Tablet 1,000 mg PO DIRECTED PRN (Reason: Pain) Hold Instructions: Resume on 03/07/25. after cleared by your primary car doctor. once your liver function improves rosuvastatin 10 mg tablet 10 mg PO QAM Hold Instructions: Resume on 03/07/25. until cleared by your primary care doctor after your liver function is improved Discharge Orders: Discharge Order (Routine); Ordered 02/09/25 Ordered By: Jossie Friend Admission Data Admit Date/Time: 02/07/25 18:08 Attending Provider: Jossie Friend Admit Provider: Jossie Friend Primary Care Provider: Stephanie Bruner Other Providers: Silver Reid; Jossie Friend; Brooks Hernandez Hospital Stay Data Consultations 02/07/25 15:05 ED Decision to Admit Stat 02/07/25 15:50 ED Decision to Admit Stat 02/08/25 14:09 Consult General Surgery Routine Diagnostic Imagining Performed 02/07/25 11:36 CT abd pelvis IV con only Stat CT angio chest PE protocol Stat Pending Results Patient Have Any Pending Studies at Discharge: No Discharge Instructions Given to Patient (Per Discharging Provider) You were admitted to the hospital for abdominal pain. You were found to have abnormal liver function test and imaging showing gallstones. Your liver function worsened initially but then improved. Your symptoms also improved. It is recommended that you eat low fat diet to help prevent further episodes of abdominal pain. You were evaluated by general surgery team and they are recommending you follow up with them in about 1 week. Please call their office Monday for appointment. You also need liver function blood test to be done on 02/12 or 02/13. This test will need to be ordered by your primary care doctor. Please call Monday to get this ordered. Continue to hold your statin and tylenol until liver function gets better and your primary doctor clears you to take them. You are medically stable for discharge. You will need to follow up with your primary care doctor in about 7 to 10 days. It was a pleasure being a part of your medical care team during your stay at [facility]. Total Time Total Time Spent Total Time Spent (In Minutes): 45 Coding Level of Care Code 32787 INP/OBS DISCH >30 MIN Diagnoses Elevated LFTs R79.89 Acute epigastric pain R10.13
[2025-02-09 13:59] VITALS: PULSE 66
== END 2025-02-09 16:40 | disposition home or self-care (01) ==
LOC: ED 10:51 → 3N 10:51